=== PATIENT | male | born 1985 | race Two or more races ===

== ENCOUNTER 2020-05-31 05:42 | Emergency (ER) | payer OTHER, SELFPAY ==
[2020-05-31 06:14] VITALS: BP 109/66; PULSE 50; RESP 16; TEMP 35.6; O2SAT 100; BMI 21.2
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
== END 2020-05-31 07:36 | disposition home or self-care (01) ==
PROVIDERS: Emergency Provider Emergency Medicine
DX: S30.822A Blister (nonthermal) of penis, initial encounter (principal); T21.16XA Burn of first degree of male genital region, initial encounter; T31.0 Burns involving less than 10% of body surface; F12.90 Cannabis use, unspecified, uncomplicated; N48.89 Other specified disorders of penis; X10.0XXA Contact with hot drinks, initial encounter; Y93.9 Activity, unspecified; Y92.810 Car as the place of occurrence of the external cause; Z11.3 Encounter for screening for infections with a predominantly sexual mode of transmission
CPT/HCPCS: 99283

== ENCOUNTER 2022-10-18 05:58 | Emergency (ER) | payer OTHER, SELFPAY ==
--- NOTE | ~2022-10-18 | CT_ITS ---
EXAMINATION: CT PELVIS WITHOUT CONTRAST CLINICAL INFORMATION: Severe right hip pain and pelvic pain and fracture evaluation COMPARISON: None TECHNIQUE: Helical scanning was performed with submillimeter collimation through the pelvis. Sagittal and coronal multiplanar 2-D reconstructions were obtained. This CT examination was performed using dose optimization techniques as appropriate, variously including the following: *Automated exposure control *Adjustment of mA and/or kV according to patient size (this includes techniques or standardized protocols for targeted exams where dose is matched to indication/reason for exam; i.e. extremities or head) *Use of iterative reconstruction technique DLP: 242 mGy-cm FINDINGS: Study is abnormal. There is a fracture/dislocation of the right hip. The right femoral head is displaced, in the superior, lateral and posterior , with a vertical fracture through the lateral margin of the acetabulum which is displaced lateral by approximately 15 mm. A second chip fracture off the tip of the acetabulum is noted. The femoral head itself femoral neck and intertrochanteric region appears intact. The symphysis pubis, and bony pelvis is otherwise intact as is the left hip. There is some edema in the right gluteus minimus muscle and air is seen within the right hip joint space. CT/CT pelvis wo IV con IMPRESSION: Fracture/dislocation of the right hip as described.
[2022-10-18 06:12] VITALS: BP 140/89; BP 170/90; PULSE 100; RESP 22; TEMP 36.4; O2SAT 98; O2SAT 99; BMI 21.2
[2022-10-18] MEDS: 0.9 % Sodium Chloride 1,000 ML 999 ML IV (06:20)
[2022-10-18] MEDS: HYDROmorphone HCl 2 MG/ML VIAL IVPUSH ×3 (06:21→11:22)
[2022-10-18] MEDS: ondansetron HCL 4 MG/2 ML VIAL IVPUSH (06:21)
--- NOTE | 2022-10-18 06:23 | PC.NURSE ---
pt a&o, no sob or chest pain. pt complaining of 10/10 Right hip and leg pain. Pt had positive pulses and leg is warm to touch. medicated per Oct. Will monitor.
[2022-10-18 06:50] VITALS: BP 138/81; PULSE 53; RESP 16; TEMP 36.4; O2SAT 97
[2022-10-18 06:53] LABS: MANUAL DIFF FLAG NO
[2022-10-18 06:54] LABS: Basophils Absolute Auto 0.1 X10*3/uL (0.0-0.2); Basophils Percent Auto 0.6 % (0-2); Eosinophils Absolute Auto 0.2 X10*3/uL (0.0-0.4); Eosinophils Percent Auto 1.7 % (0-4); Hematocrit 43.4 % (42.0-52.0); Hemoglobin 14.7 g/dl (14.0-18.0); Imm Gran Abs Auto 0.08 X10*3/uL (0.00-0.03); Imm Gran Pct Auto 0.6 % (0.0-0.4); Lymphocytes Absolute Auto 1.4 X10*3/uL (1.2-4.9); Lymphocytes Percent Auto 10.4 % (20-40); Mean Corpuscular HGB Conc 33.9 g/dl (31.0-36.0); Mean Corpuscular Hemoglobin 31.7 pg (27.0-33.0); Mean Corpuscular Volume 93.7 fL (80.0-98.0); Mean Platelet Volume 10.6 fL (9.4-12.4); Monocytes Absolute Auto 0.7 X10*3/uL (0.1-1.2); Monocytes Percent Auto 5.7 % (2-11); Neutrophils Absolute Auto 10.6 x10*3/uL (2.0-8.3); Platelet Count 195 X10*3/uL (160-400); Red Blood Count 4.63 X10*6/uL (4.60-5.80); Red Cell Distribution Width 11.8 % (11.0-16.0); White Blood Count 13.1 X10*3/uL (4.8-10.8)
[2022-10-18 07:02] LABS: INTERNATIONAL NORM RATIO 1.1 (0.9-1.1); Prothrombin Time 12.7 SEC (10.0-13.1)
[2022-10-18 07:05] LABS: Partial Thromboplastin Time 29.3 SEC (26.0-36.4)
[2022-10-18 07:11] LABS: Alanine Aminotransferase 14 U/L (0-40); Alkaline Phosphatase 67 U/L (39-117); Anion Gap 10 (12-20); Aspartate Amino Transferase 20 U/L (5-37); Bilirubin Total 2.2 mg/dL (0.0-1.0); Blood Urea Nitrogen 16 mg/dL (9-16); Carbon Dioxide 26 mmol/L (22-29); Chloride 109 mmol/L (96-108); Creatinine Clr Calc Pharmacy 134.8; Estimated Glomerular Filt Rate > 60; Glucose Random 92 mg/dL (60-115); Potassium 3.9 mmol/L (3.3-5.1); Sodium 141 mmol/L (135-145); Total Protein 6.4 g/dL (6.5-8.0)
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
[2022-10-18 08:16] VITALS: RESP 16
[2022-10-18 08:25] VITALS: BP 141/74; PULSE 62; RESP 16; O2SAT 100
--- NOTE | 2022-10-18 10:39 | MHC.EDTECH ---
@1037 DR GILLIAM REQUESTS CALL OUT TO [facility] PT TX LINE FOR TRAUMA TX FOR THIS PT MICHELINE ANSWERS,TAKES PT INFO THEN ASKS TO SPEAK WITH DR TAWANA GILLIAM TAKES OVER CALL RIGHT AWAY
--- NOTE | 2022-10-18 10:47 | MHC.EDTECH ---
@10:46AM CALL RECEIVED FROM ANURAG OF THE [facility] PT TX LINE ASKING TO SPEAK WITH DR TAWANA GILLIAM TAKES OVER CALL RIGHT AWAY
[2022-10-18 11:26] LABS: COVID-19 Test Negative (Negative); IDNOW Serial# 16C4AD1C
--- NOTE | 2022-10-18 11:41 | PC.NURSE ---
Called x 3 times could not get through to give report. Will await a call from [facility].
== END 2022-10-18 11:40 | disposition short-term general hospital (02) ==
PROVIDERS: Internal Medicine; Emergency Provider Emergency Medicine; PCP Internal Medicine
DX: S72.061A Displaced articular fracture of head of right femur, initial encounter for closed fracture (principal); V47.5XXA Car driver injured in collision with fixed or stationary object in traffic accident, initial encounter; M25.551 Pain in right hip; D72.829 Elevated white blood cell count, unspecified; Y93.89 Activity, other specified; Y92.414 Local residential or business street as the place of occurrence of the external cause; Y99.9 Unspecified external cause status; Z20.822 Contact with and (suspected) exposure to COVID-19
CPT/HCPCS: 36415; 72192; 80053; 85025; 85610; 85730; 87635; 96361; 96374; 96375; 96376; 99285; J1170; J2405

== ENCOUNTER 2023-12-12 15:19 | Outpatient (AMB) | payer OTHER, SELFPAY ==
--- NOTE | 2023-12-12 15:30 | A.OFFPC_ITS ---
Vital Signs 12/12/23 15:33 Height 6 ft 3 in Weight 224 lb BMI 28.0 BP 110/74 Blood Pressure Location Lt brachial Position Sitting Pulse 77 Pulse Source Pulse Oximeter Pulse Oximetry (%) 97 Oxygen Delivery Method Room Air Intake Visit Reasons: Rt Hip Pain/Rt Pin & needles Rt leg Intake Note: Pt is here today for a sick visit. Pt c/o R hip pain. Pt also c/o L foot pain. Allergies No Known Allergies Allergy (Verified 12/12/23 16:27) Medication List - Last Reconciled 12/12/23 by LIANA Otto gabapentin 1,800 mg PO DAILY Tobacco use date assessed: 12/12/23 Dental Screening Dental Screen Date: 12/12/23 Did you have a dental visit in the last 12 months?: Yes Did you have a dental problem in the last 6 months where you did not have access to dental care?: No Was dental information given to patient?: Patient has dentist [facility] Medical History (Updated 12/12/23 @ 16:35 by LIANA Otto) No known health problems Surgical History Hx of shoulder surgery History of hip surgery Family History Father No problems noted. Mother Lung cancer Social History Housing: House Alcohol intake: never Patient Tobacco Use Status: Never used Tobacco e-Cigarette/Vaping Use: Never Used Substance Use Type: Marijuana service: Yes Current occupational status: employed Cognitive needs: No Hearing needs: No Vision needs: No Questionnaire PHQ-9 Over the last 2 weeks, how often have you been bothered by any of the following problems? 1. Little interest or pleasure in doing things: not at all 2. Feeling down, depressed, or hopeless: not at all 3. Trouble falling or staying asleep, or sleeping too much: not at all 4. Feeling tired or having little energy: nearly every day 5. Poor appetite or overeating: several days 6. Feeling bad about yourself - or that you are a failure or have let yourself or your family down: not at all 7. Trouble concentrating on things, such as reading the newspaper or watching television: not at all 8. Moving or speaking so slowly that other people could have noticed. Or the opposite - being so fidgety or restless that you have been moving around a lot more than usual: not at all 9. Thoughts that you would be better off or of hurting yourself in some way: not at all Total score: 4 Depression Screening Interpretation: Negative Depression Screening Done: Yes 95561 - PHQ-9 Billing: Yes Source: Developed by Drs. Kwame Mccatrhy, Meagan Ackerman, Tyson Diaz and colleagues, with an educational ana from [employer] (formerly [employer]). Thrive Questionnaire Date Thrive assessed: 12/12/23 I am a: Patient What is your living situation today?: I have a steady place to live Within the past 12 months, did the food you bought not last and you didn't have the money to get more?: Never true Within the past 12 months, did you worry whether your food would run out before you got money to buy more?: Never true Do you have trouble paying for medicines?: No Do you have trouble getting transportation to medical appointments?: No Do you have trouble paying your heating and electricity bill?: No Do you have trouble taking care of your child, family member or friend?: No Do you have trouble with day-to-day activities such as bathing, preparing meals, shopping, managing finances, etc.?: No Are you currently unemployed and looking for a job?: No Are you interested in more education?: Yes THRIVE Score: 0 AUDIT C Alcohol Use Questionnaire (AUDIT-C) 1. How often do you have a drink containing alcohol?: Monthly or less 2. How many drinks containing alcohol do you have on a typical day when you are drinking?: 1 or 2 3. How often do you have six or more drinks on one occasion?: Never Total Score: 1 JADYN-7 AMB Questionnaire JADYN-7 Date JADYN - 7 assessed: 12/12/23 Feeling nervous, anxious, or on edge: 0 = Not at all Not being able to stop or control worryin = Not at all Worrying too much about different things: 1 = Several days Trouble relaxin = Several days Being so restless that it is hard to sit still: 0 = Not at all Becoming easily annoyed or irritable: 1 = Several days Feeling afraid as if something awful might happen: 1 = Several days Total JADYN-7 score (0-4 normal; 5-9 mild; 10-14 moderate; 15-21 severe): 4 Source: Developed by Drs. Kwame Mccarthy, Meagan Ackerman, Tyson Diaz and colleagues, with an educational ana from [employer] (formerly [employer]). JADYN-7 Assessment Billing JADYN-7 Assessment Tool: JADYN-7 Assessment 27861 Review of Systems Const Details: Constitutional : No Weight loss, No Fever, No Chills, No Fatigue, No Malaise ENT/Mouth : No sore throat, No Rhinorrhea Eyes: No Eye Pain, No Swelling, No Redness Cardiovascular : No Chest Pain, No SOB, No Dyspnea on Exertion, No Orthopnea, No Edema, No Palpitations Respiratory : No Cough, No Sputum, No Wheezing Gastrointestinal : No Nausea, No Vomiting, No Diarrhea, No Constipation, No abdominal Pain, No Hematochezia, No Melena Genitourinary : No Dysuria, No Urinary Frequency, No Hematuria, Musculoskeletal : Admits lower back pain, Admits left hip pain, Admits Bilateral pain on bottom of foot. Skin : No Skin Lesions, No rash Neuro : No burning pain. Psych : No Anxiety/Panic, No Depression Heme/Lymph: No Bruising, No Bleeding,No Lymphadenopathy Endocrine : No Polyuria, No Polydipsia, Admits diminished sex drive All other systems reviewed and are negative Physical exam (Primary Care) Vital Signs: Last Vital Signs Pulse 77 12/12/23 15:33 BP 110/74 12/12/23 15:33 Pulse Ox 97 12/12/23 15:33 Oxygen Delivery Method Room Air 12/12/23 15:33 Care Plan Goal for BP management: Vital signs reviewed stable. BMI result Body Mass Index 28.0 Tobacco/Smoking Status: Tobacco use Status Tobacco use date assessed 12/12/23 12/12/23 15:47 Patient Tobacco Use Status Never used Tobacco 12/12/23 15:47 e-Cigarette/Vaping Use Never Used 12/12/23 15:47 PHQ-9: PHQ-9 Score PHQ-9: Total score 4 12/12/23 15:47 Depression Screening Interpretation: Negative Thrive Assessment: Date of Thrive Assessment Date Thrive assessed 12/12/23 12/12/23 15:47 Const Other: Appearance: Alert.? Oriented X3.? No acute distress.? Head: Normocephalic, atraumatic. Neck: Normal inspection.? Neck supple.? CVS: Normal heart rate and rhythm.? Pulses normal.? Respiratory: No respiratory distress.? Breath sounds normal.? Skin: Skin warm and dry.? Normal skin color.? Normal skin turgor.? Extremities: + tenderness to bottom of foot, near calcaneus, bilateral. Back: + tenderness to left SI. Neuro: Oriented X 3.? No motor deficit.? No sensory deficit. CN 2-12 intact Assessment and Plan Assessment & Plan (1) Disorder of SI (sacroiliac) joint: Comment: Will obtain x-ray of SI joint. Will prescribe meloxicam. Code(s): M53.3 - Sacrococcygeal disorders, not elsewhere classified (2) Lower back pain: Comment: Will obtain lumbar x-ray. Code(s): M54.50 - Low back pain, unspecified Qualifiers: Chronicity: unspecified Back pain laterality: unspecified Sciatica presence: unspecified whether sciatica present Qualified Code(s): M54.50 - Low back pain, unspecified (3) Plantar fasciitis, bilateral: Comment: Will refer patient to Podiatry. Code(s): M72.2 - Plantar fascial fibromatosis Plan: Take your medications as prescribed. If you were prescribed antibiotics today, it is important that you take your medication to their entirety, do not skip any doses, do not finish them early. Follow-up with your primary care provider this week. Return to the emergency department with new or worsening symptoms. Such as fevers, chills, chest pain, shortness of breath, nausea, vomiting, dizziness, headache, vision changes, lethargy In case of emergency call 911 (4) Erectile disorder: Comment: Will draw PSA and testosterone levels. Code(s): N52.9 - Male erectile dysfunction, unspecified Plan follow up in 2 months for PE. Orders: Orders XR sacroiliac joint 1-2V Today M53.3 - Sacrococcygeal disorders, not elsewhere classified XR lumbar spine 2-3V Today M54.50 - Low back pain, unspecified TSH reflex Free T4 Today Z13.29 - Encounter for screening for other suspected endocrine disorder Testosterone, Free/Total Today N52.9 - Male erectile dysfunction, unspecified Comprehensive Met. Panel Today Z91.89 - Other specified personal risk factors, not elsewhere classified Complete Blood Count Auto Diff Today Z13.0 - Encounter for screening for diseases of the blood and blood-forming organs and certain disorders involving the immune mechanism Vitamin D 25-OH (D2 and D3) Today Z13.21 - Encounter for screening for nutritional disorder Vitamin B6 Today Z13.21 - Encounter for screening for nutritional disorder Vitamin B12 Today Z13.21 - Encounter for screening for nutritional disorder UA CC w/rflx Micro + Cult Today Z13.89 - Encounter for screening for other disorder Lipid Panel Today Z13.220 - Encounter for screening for lipoid disorders PSA,Total (Free>4and<10) Today N52.9 - Male erectile dysfunction, unspecified, Z12.5 - Encounter for screening for malignant neoplasm of prostate Medications: New meloxicam 15 mg PO DAILY 14 tabs 0RF Discontinued bacitracin Discontinued Reason: Patient Completed Course 1 appl topical BID 10 days 28 grams 0RF hydrocodone-acetaminophen 5-325 mg Discontinued Reason: Patient Completed Course 1 tab PO Q6H PRN 14 tabs 0RF pain Coding Level of Care Code Est Pt Level 4 (14470) Diagnoses Disorder of SI (sacroiliac) joint M53.3 Low back pain, unspecified back pain laterality, unspecified chronicity, unspecified whether sciatica present M54.50 Chronicity: unspecified Back pain laterality: unspecified Sciatica presence: unspecified whether sciatica present Plantar fasciitis, bilateral M72.2 Erectile disorder N52.9 Additional Codes JADYN-7 Assessment Billing - JADYN-7 Assessment Tool: JADYN-7 Assessment 35262 ([id number]) Time Spent (min) 32
[2023-12-12 15:33] VITALS: BP 110/74; PULSE 77; O2SAT 97; BMI 28.0
== END 2023-12-12 16:58 | disposition home or self-care (01) ==
PROVIDERS: PCP Internal Medicine; Visit Provider Nurse Practitioner Primary Care
DX: M53.3 Sacrococcygeal disorders, not elsewhere classified (principal); M54.50 Low back pain, unspecified; M72.2 Plantar fascial fibromatosis; N52.9 Male erectile dysfunction, unspecified
CPT/HCPCS: 99214

== ENCOUNTER 2023-12-20 09:49 | Outpatient (REF) | payer OTHER, SELFPAY ==
--- NOTE | ~2023-12-20 | XR_ITS ---
EXAMINATION: Lumbar sacral spine series sacral iliac joint series CLINICAL INFORMATION: Low back pain sacrococcygeal disorders COMPARISON: CT scan of the pelvis September 2022 TECHNIQUE: 3 views of lumbar sacral spine. 3 views of the sacroiliac joints FINDINGS: Lumbar sacral spine: Vertebral bodies normally aligned with normal height. Disc spaces normal facets normal. Surrounding bone and soft tissues unremarkable. Sacroiliac joints: The sacroiliac joints are normal without degenerative change or widening. Incidental note made of postsurgical changes overlying the right acetabulum and hip. Patient is status post orthopedic fixation related to prior posterior fracture dislocation of the right hip/acetabulum XR/XR lumbar spine 2-3V IMPRESSION: 1. No acute abnormality of the lumbar sacral spine or sacroiliac joints. 2. Postsurgical changes of the right hip and right acetabulum.
--- NOTE | ~2023-12-20 | XR_ITS ---
EXAMINATION: Lumbar sacral spine series sacral iliac joint series CLINICAL INFORMATION: Low back pain sacrococcygeal disorders COMPARISON: CT scan of the pelvis September 2022 TECHNIQUE: 3 views of lumbar sacral spine. 3 views of the sacroiliac joints FINDINGS: Lumbar sacral spine: Vertebral bodies normally aligned with normal height. Disc spaces normal facets normal. Surrounding bone and soft tissues unremarkable. Sacroiliac joints: The sacroiliac joints are normal without degenerative change or widening. Incidental note made of postsurgical changes overlying the right acetabulum and hip. Patient is status post orthopedic fixation related to prior posterior fracture dislocation of the right hip/acetabulum XR/XR sacroiliac joint 1-2V IMPRESSION: 1. No acute abnormality of the lumbar sacral spine or sacroiliac joints. 2. Postsurgical changes of the right hip and right acetabulum.
[2023-12-20 13:20] LABS: MANUAL DIFF FLAG NO
[2023-12-20 13:33] LABS: Appearance Urine Clear; Color Urine Yellow; Glucose Urine UA Negative (Negative); Leukocyte Esterase Urine Negative (Negative); Nitrite Urine Negative (Negative); Urine Blood Negative (Negative); Urine Ketones Negative (Negative); Urine Protein Negative (Neg-Trace)
[2023-12-20 13:40] LABS: Basophils Percent Auto 0.6 % (0-2); Eosinophils Absolute Auto 0.3 X10*3/uL (0.0-0.4); Eosinophils Percent Auto 4.1 % (0-4); Hematocrit 44.8 % (42.0-52.0); Hemoglobin 15.2 g/dl (14.0-18.0); Imm Gran Abs Auto 0.01 X10*3/uL (0.00-0.03); Imm Gran Pct Auto 0.2 % (0.0-0.4); Lymphocytes Absolute Auto 1.8 X10*3/uL (1.2-4.9); Lymphocytes Percent Auto 28.4 % (20-40); Mean Corpuscular HGB Conc 33.9 g/dl (31.0-36.0); Mean Corpuscular Hemoglobin 31.3 pg (27.0-33.0); Mean Corpuscular Volume 92.2 fL (80.0-98.0); Mean Platelet Volume 11.6 fL (9.4-12.4); Monocytes Absolute Auto 0.7 X10*3/uL (0.1-1.2); Monocytes Percent Auto 10.3 % (2-11); Neutrophils Absolute Auto 3.6 x10*3/uL (2.0-8.3); Neutrophils Percent Auto 56.4 % (45-73); Platelet Count 225 X10*3/uL (160-400); Red Blood Count 4.86 X10*6/uL (4.60-5.80); Red Cell Distribution Width 11.9 % (11.0-16.0); White Blood Count 6.3 X10*3/uL (4.8-10.8)
[2023-12-20 14:19] LABS: PSA,Total (Free>4and<10) 0.75 ng/mL (0.00-4.00)
[2023-12-20 14:28] LABS: Alanine Aminotransferase 14 U/L (0-40); Albumin Level 4.3 g/dL (3.5-5.0); Alkaline Phosphatase 80 U/L (39-117); Anion Gap 10 (12-20); Aspartate Amino Transferase 19 U/L (5-37); Bilirubin Total 1.2 mg/dL (0.0-1.0); Blood Urea Nitrogen 15 mg/dL (9-16); Calcium 9.5 mg/dL (8.4-10.2); Carbon Dioxide 24 mmol/L (22-29); Chloride 107 mmol/L (96-108); Cholesterol 175 mg/dL (<200); Estimated Glomerular Filt Rate > 60; Glucose Random 119 mg/dL (60-115); HDL Cholesterol 53 mg/dL (>40); LDL Cholesterol Calculated 106 mg/dL (<100); Potassium 3.8 mmol/L (3.3-5.1); Sodium 137 mmol/L (135-145); TSH reflex Free T4 1.34 uIU/mL (0.32-4.0); Total Protein 7.6 g/dL (6.5-8.0); Triglycerides 80 mg/dL (<150)
[2023-12-20 14:29] LABS: Vitamin B12 751 pg/mL (200-900)
[2023-12-25 21:14] LABS: Testosterone, Free 80.7 pg/mL (35.0-155.0); Testosterone, Total 511 ng/dL (250-1100)
[2023-12-26 06:33] LABS: Vitamin B6 23.6 ng/mL (2.1-21.7)
[2024-01-04 14:53] LABS: Vitamin D 25-OH, D2 <4 ng/mL; Vitamin D 25-OH, D3 30 ng/mL; Vitamin D 25-OH, Total 30 ng/mL (30-100)
== END 2023-12-20 09:50 | disposition home or self-care (01) ==
LOC: HO.HMGCX 09:49
PROVIDERS: Visit Provider Nurse Practitioner Primary Care
DX: Z13.29 Encounter for screening for other suspected endocrine disorder (principal); Z13.21 Encounter for screening for nutritional disorder; Z13.220 Encounter for screening for lipoid disorders; Z13.89 Encounter for screening for other disorder; Z12.5 Encounter for screening for malignant neoplasm of prostate; Z13.0 Encounter for screening for diseases of the blood and blood-forming organs and certain disorders involving the immune mechanism; M54.50 Low back pain, unspecified; M53.3 Sacrococcygeal disorders, not elsewhere classified; N52.9 Male erectile dysfunction, unspecified; Z91.89 Other specified personal risk factors, not elsewhere classified
CPT/HCPCS: 36415; 72100; 72200; 80053; 80061; 81003; 82306; 82607; 84153; 84207; 84402; 84403; 84443; 85025

== ENCOUNTER 2024-01-14 13:48 | Outpatient (AMB) | payer OTHER, SELFPAY ==
--- NOTE | 2024-01-14 13:50 | MHC.OFFWIV ---
Intake Vital Signs 01/14/24 13:51 Height 6 ft 3 in BP 112/72 Blood Pressure Location Rt brachial Position Sitting Pulse 76 Pulse Source Pulse Oximeter Temp 97.9 F Temp Source Oral Pulse Oximetry (%) 98 Oxygen Delivery Method Room Air Intake Visit Reasons: EP STD and HIV testing Patient Tobacco Use Status: Never used Tobacco Allergies No Known Allergies Allergy (Verified 03/02/24 15:24) Do you need a note to return to daycare/school/sports/work: No HPI HPI Comments History of Present Illness Details Patient presents today requesting STD screening test. Patient is asymptomatic [facility] Medical History (Updated 03/02/24 @ 15:32 by LIANA Otto) No known health problems Surgical History Hx of shoulder surgery History of hip surgery Family History Father No problems noted. Mother Lung cancer Social History Housing: House Alcohol intake: never Patient Tobacco Use Status: Never used Tobacco e-Cigarette/Vaping Use: Never Used Substance Use Type: Marijuana service: Yes Current occupational status: employed Cognitive needs: No Hearing needs: No Vision needs: No Review of Systems Const All systems reviewed & are unremarkable except as noted in HPI and below Physical Exam Vital Signs: Last Vital Signs Temp 97.9 F 01/14/24 13:51 Pulse 76 01/14/24 13:51 BP 112/72 01/14/24 13:51 Pulse Ox 98 01/14/24 13:51 Oxygen Delivery Method Room Air 01/14/24 13:51 Const General: healthy appearing Assessment & Plan Assessment & Plan (1) Screening for STD (sexually transmitted disease): Code(s): Z11.3 - Encounter for screening for infections with a predominantly sexual mode of transmission Plan STD screening tests ordered. Orders: Orders Hepatitis A,B,C Profile 01/14/24 Z11.3 - Encounter for screening for infections with a predominantly sexual mode of transmission Syphilis Screen 01/14/24 Z11.3 - Encounter for screening for infections with a predominantly sexual mode of transmission CT NG by PCR 01/14/24 Z13.9 - Encounter for screening, unspecified HIV Ab/Ag 01/14/24 Z11.3 - Encounter for screening for infections with a predominantly sexual mode of transmission Coding Level of Care Code Est Pt Level 3 (67377) Diagnoses Screening for STD (sexually transmitted disease) Z11.3
[2024-01-14 13:51] VITALS: BP 112/72; PULSE 76; TEMP 36.6; O2SAT 98
== END 2024-01-14 14:37 | disposition home or self-care (01) ==
PROVIDERS: PCP Nurse Practitioner Primary Care; Visit Provider Physician Assistant Medical
DX: Z11.3 Encounter for screening for infections with a predominantly sexual mode of transmission (principal)
CPT/HCPCS: 99213

== ENCOUNTER 2024-01-14 14:21 | Outpatient (REF) | payer OTHER, SELFPAY | END 2024-01-14 14:22 | disposition home or self-care (01) | LOC: HO.LNP 14:21 | PROVIDERS: Visit Provider Physician Assistant Medical | DX: Z13.89 Encounter for screening for other disorder (principal) ==

== ENCOUNTER 2024-01-14 14:27 | Outpatient (REF) | payer OTHER, SELFPAY ==
[2024-01-15 08:24] LABS: Syphilis Screen Nonreactive (Nonreactive)
[2024-01-15 08:31] LABS: HBS Num1 259.51 mIU/mL (0-7.99); HBc Num1 0.07 S/CO (0.00-0.79); HBsAGNum1 0.37 S/CO (0.00-0.99); HIV AB/AG Nonreactive (Nonreactive); HIV Num 1 0.05 S/CO (0.00-0.99); Hepatitis A Antibody IgM 0.22 Index (0-0.79); Hepatitis B Core Antibody Nonreactive (Nonreactive); Hepatitis B Surface Antigen Negative (Negative); ~HepC Num1 0.07 S/CO (0.00-0.79); ~Hepatitis A Antibody IgM Nonreactive (Nonreactive); ~Hepatitis B Surface Antibody REACTIVE (Nonreactive); ~Hepatitis C Antibody Nonreactive (Nonreactive)
[2024-01-15 11:06] LABS: CT PCR NOT DETECTED (Not Detect.); NG PCR NOT DETECTED (Not Detect.)
== END 2024-01-14 14:28 | disposition home or self-care (01) ==
LOC: HO.HMGCLDS 14:27
PROVIDERS: PCP Nurse Practitioner Primary Care; Visit Provider Physician Assistant Medical
DX: Z13.9 Encounter for screening, unspecified (principal); Z11.3 Encounter for screening for infections with a predominantly sexual mode of transmission
CPT/HCPCS: 0353U; 36415; 86704; 86706; 86709; 86780; 86803; 87340; 87389

== ENCOUNTER 2024-03-02 14:47 | Outpatient (AMB) | payer OTHER, SELFPAY ==
--- NOTE | 2024-03-02 14:48 | MHC.PC.OV ---
Vital Signs 03/02/24 14:49 Height 6 ft 3 in Weight 219 lb BMI 27.4 BP 104/70 Blood Pressure Location Lt brachial Position Sitting Pulse 73 Pulse Source Pulse Oximeter Pulse Oximetry (%) 98 Oxygen Delivery Method Room Air Intake Visit Reasons: Annual PE Intake Note: Pt is here for annual PE Allergies No Known Allergies Allergy (Verified 03/02/24 15:24) Medication List - Last Reconciled 03/02/24 by LIANA Otto gabapentin 600 mg PO TID Tobacco use date assessed: 03/02/24 Dental Screening Dental Screen Date: 03/02/24 Did you have a dental visit in the last 12 months?: Yes Did you have a dental problem in the last 6 months where you did not have access to dental care?: No Was dental information given to patient?: Patient has dentist HPI HPI Comments History of Present Illness Details patient is a 38-year-old male here today for physical exam. Patient does not know when his last TD booster shot was, however he believes it was in the past 10 years and would like us to obtain records from previous provider. He has signed release at today's appointment. He has a past medical history significant for: Right hip pain secondary to right hip dislocation - patient has establish care with ortho. Left foot plantar fasciitis- little improvement with meloxicam and stretches. Patient will get referral to [facility]. [facility] Medical History (Updated 03/02/24 @ 15:32 by LIANA Otto) No known health problems Surgical History Hx of shoulder surgery History of hip surgery Family History Father No problems noted. Mother Lung cancer Social History Housing: House Alcohol intake: never Patient Tobacco Use Status: Never used Tobacco e-Cigarette/Vaping Use: Never Used Substance Use Type: Marijuana service: Yes Current occupational status: employed Cognitive needs: No Hearing needs: No Vision needs: No Questionnaire Thrive Questionnaire Date Thrive assessed: 12/12/23 AUDIT C Alcohol Use Questionnaire (AUDIT-C) 1. How often do you have a drink containing alcohol?: Monthly or less 2. How many drinks containing alcohol do you have on a typical day when you are drinking?: 1 or 2 3. How often do you have six or more drinks on one occasion?: Never Total Score: 1 JADYN-7 AMB Questionnaire JADYN-7 Date JADYN - 7 assessed: 12/12/23 Source: Developed by Drs. Kwame Mccarthy, Meagan Ackerman, Tyson Diaz and colleagues, with an educational ana from [employer]. Review of Systems Const All systems reviewed & are unremarkable except as noted in HPI and below Physical exam (Primary Care) Vital Signs: Last Vital Signs Pulse 73 03/02/24 14:49 BP 104/70 03/02/24 14:49 Pulse Ox 98 03/02/24 14:49 Oxygen Delivery Method Room Air 03/02/24 14:49 Care Plan Goal for BP management: Blood pressure is controlled. BMI result Body Mass Index 27.4 Tobacco/Smoking Status: Tobacco use Status Tobacco use date assessed 03/02/24 03/02/24 14:53 Patient Tobacco Use Status Never used Tobacco 03/02/24 14:53 e-Cigarette/Vaping Use Never Used 03/02/24 14:53 Thrive Assessment: Date of Thrive Assessment Date Thrive assessed 12/12/23 03/02/24 14:53 Const Other: Appearance: Alert.? Oriented X3.? No acute distress.? Head: Normocephalic,. Eyes: Pupils equal, round and reactive to light.? ENT: Pharynx normal.?TM intact and pearly porter. Neck: Normal inspection.? Neck supple.? CVS: Normal heart rate and rhythm.? Pulses normal.? Respiratory: No respiratory distress.? Breath sounds normal.? Abdomen: Soft and nontender.? Skin: Skin warm and dry.? Normal skin color.? Normal skin turgor.? Extremities: No lower extremity edema.? No calf ttp. 5/5 strength to bilateral upper and lower extremities. +tenderness to left calcaneus and left achilles tendon. Back: No midline tenderness, no C-spine tenderness, full range of motion, no CVA tenderness bilaterally Neuro: Oriented X 3.? No motor deficit.? No sensory deficit. CN 2-12 intact Assessment and Plan Assessment & Plan (1) Physical exam: Comment: Patient does not know when his last TD booster shot was, however he believes it was in the past 10 years and would like us to obtain records from previous provider. He has signed release at today's appointment. He has a past medical history significant for: Right hip pain secondary to right hip dislocation - patient has establish care with ortho. Left foot plantar fasciitis- little improvement with meloxicam and stretches. Patient will get referral to [facility] Has been educated on the importance of self testicular exams. Will draw labs. Code(s): Z00.00 - Encounter for general adult medical examination without abnormal findings (2) Plantar fasciitis, bilateral: Comment: Will refer patient to Podiatry. Code(s): M72.2 - Plantar fascial fibromatosis Orders: Referrals Podiatry Referral M79.672 - Pain in left foot Coding Level of Care Code Est Pt Prev Care 18-39y(03711) Diagnoses Physical exam Z00.00 Plantar fasciitis, bilateral M72.2 Time Spent (min) 26
[2024-03-02 14:49] VITALS: BP 104/70; PULSE 73; O2SAT 98; BMI 27.4
== END 2024-03-02 15:46 | disposition home or self-care (01) ==
PROVIDERS: PCP Nurse Practitioner Primary Care; Visit Provider Nurse Practitioner Primary Care
DX: Z00.00 Encounter for general adult medical examination without abnormal findings (principal); M72.2 Plantar fascial fibromatosis
CPT/HCPCS: 99395

== ENCOUNTER 2024-06-19 20:41 | Emergency (ER) | payer OTHER, SELFPAY ==
[2024-06-19 20:47] VITALS: BP 115/72; PULSE 79; RESP 18; TEMP 37.1; O2SAT 97; BMI 26.2
--- OUTSIDE RECORDS SUMMARY | 2024-06-19 23:32 | XMS_ITS | Continuity of Care Document ---
Author Organization [facility] Address [address] [place] [address]- Care Team Providers Care Employee Operations Examiner Name Role Phone Rut Christianson MD Primary Care Physician [phone] Encounter [facility] Date(s): 08/03/19 - 08/13/19 [facility] [address] [place] [address]- [facility] Attending Physician: Tatiana Lara Admitting Physician: AdmTatiana felder Referring Physician: AdmtrTatiana Allergies, Adverse Reactions, Alerts Substance Reaction Severity Status Zoloft hives Active Immunizations Given and Recorded Vaccine Date Status Refusal Reason tetanus/diphtheria/pertussis, acel(Tdap) 1 12/30/09 Given pneumococcal 23-valent vaccine 2 12/30/09 Given influenza virus vaccine, inactivated 3 12/30/09 Gi lalit 1Admin Note: vis 12/30 2Admin Note: vis 12/02 3Admin Note: vis 04/03 Medications acyclovir 400 mg oral tablet 1 tablet = 400 mg, By Mouth, 3 times a day, drink plenty of fluids. use at FIRST sign of outbreak, # 15 tablet, 3 Refills, Maintenance, 08/03/19 15:26:43 EST, Tablet, 190.5, cm, 08/03/19 15:02:53 EST, Height Start Date: 08/03/19 Stop Date: 08/23/19 Status: Ordered Problem List Condition Effective Dates Status Health Status Inform ant ADHD - Attention deficit dis order with hyperactivity(Confirmed) 1989 Active Shoulder dislocation(Confirmed) 01/2014 Active Social History Social History Type Response Smoking Status Former smoker entered on: 08/16/14 Sex Male
--- OUTSIDE RECORDS SUMMARY | 2024-06-19 23:32 | XMS_ITS | Continuity of Care Document ---
Author Organization [facility] Address [address] [place] [address]- Care Team Providers Care Patient Svcs Mgr Name Role Phone Rut Christianson MD Primary Care Physician Encounter [facility] Date(s): 09/13/20 - 10/13/20 [facility] [address], [place] [address] Attending Physician: Tatiana Lara Admitting Physician: Tatiana Lara Referring Physician: AdmtrTatiana Allergies, Adverse Reactions, Alerts [...] outbreak, # 15 tablet, 3 Refills, Maintenance, 06/06/20 11:48:00 EDT, Tablet, [id number], 190.5, cm, 06/06/20 11:41:00 EDT, Height Start Date: 06/06/20 Stop Date: 06/26/20 Status: Ordered Problem List Condition Effective Dates Status Health Status Inform ant ADHD - Attention deficit dis order with hyperactivity(Confirmed) 1989 Active Social History Social History Type Response Smoking Status Former smoker entered on: 08/16/14 Sex Male
--- OUTSIDE RECORDS SUMMARY | 2024-06-19 23:32 | XMS_ITS | Continuity of Care Document ---
Author Organization [facility] ter Address [address] [place] [address]- Care Team Providers Care Dispatcher Maintenance Service Name Role Phone Rut Christianson MD Primary Care Physician Encounter [facility] Date(s): 10/22/22 - 11/21/[address] [address] Attending Physician: Not on Staff, Attending MD Admitting Physician: Not on Staff, Admitting MD Referring Physician: Not on Staff, Referring MD Allergies, Adverse Reactions, Alerts No Known Allergies Immunizations Given and Recorded Vaccine Date Status Refusal Reason tetanus/diphtheria/pertussis, acel(Tdap) 1 12/30/09 Given pneumococcal 23-valent vaccine 2 12/30/09 Given influenza virus vaccine, inactivated 3 12/30/09 Gi lalit 1Admin Note: vis 12/30 2Admin Note: vis 12/02 3Admin Note: vis 04/03 Medications Acetaminophen 0 Refills, Maintenance, 11/16/22 10:02:00 EDT, Partial fill upon patient request if the prescription is for a schedule II opioid drug. Start Date: 11/16/22 Status: Ordered acyclovir 400 mg oral tablet See Instructions, TAKE 1 TABLET 3 TIMES A DAY X5 DAYS DRINK PLENTY OF FLUIDS. USE AT FIRST SIGN OF OUTBREAKA, # 15 tablet, 3 Refills, Maintenance, 09/07/22 12:58:00 EST, [id number] Start Date: 09/07/22 Status: Ordered docusate-senna 50 mg-8.6 mg oral capsule 2 capsule, By Mouth, 2 times a day, PRN Constipation, # 30 capsule, 0 Refills, Acute 10/21/23 11:07:00 EST, 10/22/22 11:06:00 EST, Capsule, [facility], Partial fill upon patient requestif the prescription is for a schedule II opioid igor... Start Date: 10/22/22 Stop Date: 10/21/23 Status: Ordered gabapentin 300 mg oral capsule via surgery team, Refills 0, Maintenance, 11/16/22 10:02:00 EDT, Partial fill upon patient request if the prescription is for a schedule II opioid drug. Start Date: 11/16/22 Status: Ordered indomethacin 75 mg oral capsule, extended release 1 capsule = 75 mg, By Mouth, Daily, with food or milk, # 56 capsule, 0 Refills, Maintenance, 10/26/22 12:26:00 EST, ER Capsule, [facility], Partial fill upon patient request if the prescription is for a schedule II opioid drug., 190, cm,... Start Date: 10/26/22 Stop Date: 12/21/22 Status: Ordered oxyCODONE 5 mg oral tablet via surgery team, Refills 0, Tot. Refills 0, Maintenance, 11/16/22 10:02:00 EDT, Partial fill upon patient request if the prescription is for a schedule II opioid drug. Start Date: 11/16/22 Status: Ordered Protonix 40 mg oral delayed release tablet = 40 mg, By Mouth, Daily, # 30 each, 0 Refills, Maintenance, 10/22/22 11:06:00 EST, EC Tablet, 190,cm, 10/22/22 7:09:00 EST, Height, 82.5, kg, 10/18/22 20:47:00 EST, Dry Weight Start Date: 10/22/22 Stop Date: 11/21/22 Status: Ordered Problem List Condition Confirmation Course Effective Dates Status H ealth Status Informant ADHD - Attention deficit disorder with hyperactivity Confirmed 1989 Active Social History Social History Type Response Smoking Status Former smoker entered on: 08/16/14 Sex Male Patient Care team information Care Team Personnel Name: Rut Christianson MD Position: [facility] Primary Care Physician Member Role: PCP Address: Address: [address] [place] [address]- Name: Laura Bentley RN Position: S RN Member Role: Primary Care Nurse Name: Terra Mann RN Position: S RN Member Role: Primary Care Nurse Care Team Related Persons Name: GRADY YANG Address: home [address] [place] [address]
--- OUTSIDE RECORDS SUMMARY | 2024-06-19 23:32 | XMS_ITS | Continuity of Care Document ---
Author Organization [facility] ter Address [address] [place] [address]- Care Team Providers Care Cinder Snapper Name Role Phone Rut Christianson MD Primary Care Physician [phone] Encounter [facility] Date(s): 10/13/19 - 10/13/[address] [address]- [facility] Attending Physician: Rut Christianson MD Allergies, Adverse Reactions, Alerts Substance Reaction Severity [...] Date: 08/03/19 Stop Date: 08/23/19 Status: Ordered fluticasone 50 mcg/inh nasal spray 1 sprays, Nares, Both, Daily, # 16 Gm, 2 Refills, Maintenance, 10/12/19 16:00:00 EST, [place], [id number], 1 sprays Nares, Both Daily, 190.5, cm, 10/12/19 15:28:00 EST, Height Start Date: 10/12/19 Status: Ordered Problem List Condition Effective Dates Status Health Status Inform ant ADHD - Attention deficit dis order with hyperactivity(Confirmed) 1989 Active Social History Social History Type Response Smoking Status Former smoker entered on: 08/16/14 Sex Male
--- OUTSIDE RECORDS SUMMARY | 2024-06-19 23:32 | XMS_ITS | Continuity of Care Document ---
Author Organization [facility] Address [address] [place] [address]- Care Team Providers Care Principal Mechanical Engineer Name Role Phone Rut Christianson MD Primary Care Physician Encounter [facility] Date(s): 10/19/19 - 10/29/19 [facility] [address] [place] [address]- [facility] Attending Physician: Tatiana Lara Admitting Physician: AdmtrTatiana Referring Physician: Admtr, ArArleth Allergies, Adverse Reactions, Alerts Substance Reaction Severity [...] Gm, 2 Refills, Maintenance, 10/12/19 16:00:00 EST, [place], [id number], 1 sprays Nares, Both Daily, 190.5, cm, 10/12/19 15:28:00 EST, Height Start Date: 10/12/19 Status: Ordered Problem List Condition Effective Dates Status Health Status Inform ant ADHD - Attention deficit dis order with hyperactivity(Confirmed) 1989 Active Social History Social History Type Response Smoking Status Former smoker entered on: 08/16/14 Sex Male
--- OUTSIDE RECORDS SUMMARY | 2024-06-19 23:32 | XMS_ITS | Continuity of Care Document ---
Author Organization [facility] Address [address] [place] [address]- Care Team Providers Care Credentialing Assistant Name Role Phone Rut Christianson MD Primary Care Physician [phone] Encounter [facility] Date(s): 11/20/23 - 12/20/[address] [address]- Attending Physician: Tatiana Lara Admitting Physician: AdmtrTatiana Referring Physician: AdmtrTatiana Allergies, Adverse Reactions, Alerts No Known Allergies [...] OUTBREAKA, # 15 tablet, 3 Refills, Maintenance, 10/15/23 18:17:00 EST, [id number], 190, cm, 11/16/22 9:37:00 EDT, Height, 82.5, kg, 10/18/22 20:... Start Date: 10/15/23 Status: Ordered gabapentin 300 mg oral capsule [...] Refills, Maintenance, 10/26/22 12:26:00 EST, ER Capsule, [facility], Partial fill upon patient request if [...] Team Personnel Name: Rut Christianson MD Position: [facility] Physician - Primary Care Member Role: PCP Address: Address: [address] [place] [address]- Name: Laura Bentley RN Position: S RN Member Role: Primary Care Nurse Name: Terra Mann RN Position: S RN Member Role: Primary Care Nurse Care Team Related Persons Name: GRADY YANG Address: home [address] [place] [address]
--- OUTSIDE RECORDS SUMMARY | 2024-06-19 23:32 | XMS_ITS | Continuity of Care Document ---
Author Organization [facility] Address [address] [place] [address]- Care Team Providers Care Photographers' Model Name Role Phone Rut Christianson MD Primary Care Physician [place] [facility] [place] 12/27/22 - 01/26/23 [facility] [address] [place] [address]- Allergies, Adverse Reactions, Alerts No Known Allergies [...] OUTBREAKA, # 15 tablet, 3 Refills, Maintenance, 12/28/22 13:30:00 EDT, [id number], 190, cm, 11/16/22 9:37:00 EDT, Height, 82.5, kg, 10/18/22 20:... Start Date: 12/28/22 Status: Ordered docusate-senna 50 mg-8.6 mg oral capsule 2 capsule, By Mouth, 2 times a day, PRN Constipation, # 30 capsule, 0 Refills, Acute 10/21/23 11:07:00 EST, 10/22/22 11:06:00 EST, Capsule, [facility], Partial fill upon patient requestif the [...] Refills, Maintenance, 10/26/22 12:26:00 EST, ER Capsule, [facility], Partial fill upon patient request [...] Team Personnel Name: Rut Christianson MD Position: [facility] Physician - Primary Care Member Role: PCP Address: Address: [address] [place] [id number] Name: Laura Bentley RN Position: S RN Member Role: Primary Care Nurse Name: Terra Mann RN Position: S RN Member Role: Primary Care Nurse Care Team Related Persons Name: GRADY YANG Address: home [address] [place] [id number]
--- OUTSIDE RECORDS SUMMARY | 2024-06-19 23:32 | XMS_ITS | Continuity of Care Document ---
Author Organization [facility] Address [address] [place] [address]- Care Team Providers Care Bat Person Name Role Phone Sammy WHITE, Rut Primary Care Physician Encounter [facility] Date(s): 01/11/22 - 02/10/22 [facility] [address] [place], [place] [address] Allergies, Adverse Reactions, Alerts Substance Reaction Severity [...] outbreak, # 15 tablet, 3 Refills, Maintenance, 01/12/22 8:59:00 EDT, Tablet, [id number], 190.5, cm, 06/28/20 13:59:00 EST, Height Start Date: 01/12/22 Stop Date: 02/01/22 Status: Ordered Problem List Condition Effective Dates Status Health Status Inform ant ADHD - Attention deficit dis order with hyperactivity(Confirmed) 1989 Active Social History Social History Type Response Smoking Status Former smoker entered on: 08/16/14 Sex Male
--- OUTSIDE RECORDS SUMMARY | 2024-06-19 23:32 | XMS_ITS | Continuity of Care Document ---
Author Organization [facility] Address [address] [place] [address]- Care Team Providers Care [facility] Name Role Phone Rut Christianson MD Primary Care Physician [phone] [place] [facility] [place](s): 11/14/23 - 12/20/[address] [address]- Attending Physician: Brit Reeder MD Admitting Physician: Brit Reeder MD Referring Physician: Brit Reeder MD Allergies, Adverse Reactions, Alerts No Known [...] tablet, 3 Refills, Maintenance, 10/15/23 18:17:00 EST, [id number], 190, cm, 11/16/22 9:37:00 EDT, Height, [...] Refills, Maintenance, 10/26/22 12:26:00 EST, ER Capsule, [facility], Partial fill upon patient [...] Personnel Name: Rut Christianson MD Position: [facility] Physician - Primary Care Member Role: PCP Address: Address: [address] [place] [address]- Name: Laura Benltey RN Position: S RN Member Role: Primary Care Nurse Name: Terra Mann RN Position: S RN Member Role: Primary Care Nurse Care Team Related Persons Name: FLORY YANGATE Address: home [address] [place] [address]
--- OUTSIDE RECORDS SUMMARY | 2024-06-19 23:32 | XMS_ITS | Continuity of Care Document ---
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 injectable solution) 0.4 mL = 40 mg, Subcutaneous Injection, Every 24 hours, # 12 mL, 0 Refills, [facility] [address] [address] [phone] Next Dose: Hydromorphone (Dilaudid 2 mg oral tablet) 1 tablet = 2 mg, By Mouth, Every 3 hours, # 40 tablet, 0 Refills, [facility] 3, [address] [place] [phone] Next Dose: Indomethacin (indomethacin 75 mg oral capsule, extended release) 1 capsule = 75 mg, By Mouth, Daily, # 56 capsule, 0 Refills, with food or milk, [facility] 3, [address] [place] [phone] Next Dose: Pantoprazole (Protonix 40 mg oral delayed release tablet) 40 mg, By Mouth, Daily, # 30 each, 0 Refills, [facility] 3, [address] [id number] [phone] Next Dose: Patient Instructions Given:Please contact Dr. Zurita???s office with any further questions or concerns regarding your injury or surgery. Please take a laxative or stool softener, such as colace or milk of magnesia, as needed for constipation. Elevate operative extremity to reduce swelling; keep bandage clean and dry If any fever, chills, uncontrolled pain, or any other issues you feel may be urgent, do present, consult your physician and/or return to the Emergency Room. You may resume your home medications as prescribed by your PCP You will need to continue lovenox injections for DVT prophylaxis (to prevent blood clots) for at least 1 month or until instructed otherwise by your surgeon. Continue touchdown weightbearing right leg with hip dislocation precautions until advanced in the office. No active hip ROM until instructed otherwise. You may get incision wet in the shower 5 days after surgery. Remove dressing and allow soap and water to run over the incision. Pat incision dry and replace dry dressing. Change dry dressing daily. No swimming, tub baths or soaking leg until stephen removed and incisions fully healed. Do not drive until instructed otherwise. Dr. Zurita has recommended taking indomethacin 75mg once daily for 8 weeks at home for the prevention of heterotopic bone formation. Start first dose on Thursday 10/26. This should be stopped if you have any episodes of bleeding. You will need to continue pantoprazole while taking indomethacin. Education Given: Patient Follow-up:Added Follow Up Time Frame Comments Germania Zurita MD 2 to 3 weeks Please call to schedule follow-up appointment . Home Health Face to Face I certify that this patient is under my care and that I or an allowed non- physician practitioner working with me, had a lfev-aw-oipl encounter with the patient on this date: 10/22/2022. The encounter with the patient was in whole, or in part, for the following medical condition, whichis the primary reason for home health care: Closed displaced fracture of posterior wall of right acetabulum. Nursing. Physical Therapy: Home exercise program to strengthen, increase ROM, TDWB RLE w/ hip dislocation precautions. No active hip ROM. Occupational Therapy: Fall prevention training. Homebound due to: Inability to leave home without assistance/supervision, Inability to ambulate without assistance, Pain, decreased strength, and endurance, Limited weight bearing. Physician Signature: Germania Zurita MD . MEDICATION LIST (Selected) Prescriptions Prescribed Dilaudid 2 mg oral tablet: 1 tablet = 2 mg, By Mouth, Every 3 hours, PRN Pain , Moderate, # 40 tablet, 0 Refills, Acute 10/29/22 11:07:00 EST, 10/22/22 11:06:00 EST, Tablet, [facility],Partial fill upon patient request if the prescription is for a schedule II opi... PT/OT Equipment: See Instructions, # 1 each, Maintenance, Over toilet commode Dx: Acetabulum fracture Length of need: 6 months, 10/22/22 10:36:00 EST, Supply PT/OT Equipment: See Instructions, # 1 each, Maintenance, Shower chair/tub transfer bench Dx: Acetabulum fracture Length of need: 6 months, 10/22/22 10:35:00 EST, Supply Protonix 40 mg oral delayed release tablet: = 40 mg, By Mouth, Daily, # 30 each, 0 Refills, Maintenance, 10/22/22 11:06:00 EST, EC Tablet, 190, cm, 10/22/22 7:09:00 EST, Height, 82.5, kg, 10/18/22 20:47:00 EST, Dry Weight acetaminophen 325 mg oral tablet: 650 mg, 2, tablet, By Mouth, Every 6 hours, # 100 tablet, Refills0, Tot. Refills 0, Acute 11/05/22 11:07:00 EDT, 10/22/22 11:06:00 EST, Route to Pharmacy Electronically, [facility], Partial fill upon patient request if the prescription... docusate-senna 50 mg-8.6 mg oral capsule: 2 capsule, By Mouth, 2 times a day, PRN Constipation, # 30 capsule, 0 Refills, Acute 10/21/23 11:07:00 EST, 10/22/22 11:06:00 EST, Capsule, [facility], Partial fill upon patient request if the prescription is for a schedule II opioid igor... enoxaparin 40 mg/0.4 mL injectable solution: 0.4 mL = 40 mg, Subcutaneous Injection, Every 24 hours, for 30 days, # 12 mL, 0 Refills, Acute 11/21/22 11:06:00 EDT, 10/22/22 11:06:00 EST, Injection, [facility], Partial fill upon patient request if the prescription is for a schedule I... indomethacin 75 mg oral capsule, extended release: 1 capsule = 75 mg, By Mouth, Daily, with food ormilk, # 56 capsule, 0 Refills, Maintenance, 10/26/22 12:26:00 EST, ER Capsule, [facility], Partial fill upon patient request if the prescription is for a schedule II opioid drug., 190, cm,... Therapies Wound care: Daily dry dressing changes. * Mari Armenta RN: PERFORM Event Display: Patient Education/Instruction Authored Date: [id number] Inpatient Adult Discharge Instructions [address] [address] Name: JHONNY CERRATO : 1985 Visit: 10/18/2022 18:47:00 Current Date: 10/22/2022 14:24 Account: [id number] Inpatient Adult Discharge Instructions We would like to thank you for allowing us to assist you with your healthcare needs. The following includes patient education materials and information regarding your injury/illness. Our entire staffstrives to provide an excellent experience for our patients and their families. PLEASE ENSURE YOU FOLLOW-UP PER THE INSTRUCTIONS BELOW! ?? YOUR OPINION IS IMPORTANT TO US! Please complete the survey you may receive by mail or email. Your feedback will be used to make improvements to the healthcare experiences of our patients and their families. Surveys are administered by [employer] ?? If further treatment with your primary care physician or another doctor is recommended, it is important for you to keep the appointment. Call your primary care physician or return to the Emergency Department immediately if your condition worsens, fails to improve, or new symptoms develop. If you need to find a doctor, you can call [facility] [employer] for a referral at [phone] or toll free at [phone] or log in to [email or web address].. ?? You can view and manage your care through the patient portal or by using a health care ryan of your choosing. [employer] is a website that allows you to securely view your medical information including your hospital discharge summary, office visit summaries, medications and follow-up visits. You can also request appointments, renew medications, and request access to your medical information using a health care ryan of your choosing, or just ask a question. You can enroll at [email or web address] or register during your next office visit. You have been discharged from [facility], Patient Care Unit: S3. If you have any questions regarding these instructions after you leave, please call us and we will be happy to assist you. [facility] Your Care Team Attending Physician Yudith WHITE, Germnaia Consulting Providers Yudith WHITE, Germania; Robel WHITE, Jagdish Discharging Providers Delphine Zuluaga Reason for Admission Consult requested on patient with episode of hematemesis. Your Diagnosis Pelvic fracture Hematemesis Closed dislocation of right hip Closed displaced fracture of posterior wall of right acetabulum Tests Performed Below is a partial list of the tests performed during your hospitalization. You may have had other tests and procedures not included in this list. Please discuss all test results with your provider. Alcohol Level Amphetamine Urine Screen Amylase Barbiturate Urine Screen Basic Metabolic Panel Benzodiazepine Urine Screen Cannabinoid Urine Screen CBC CBC w/ Differential Cocaine Urine Screen COVID-19 (2019 Novel Coronavirus) PCR COVID-19 (Novel Coronavirus), Rapid PCR Electrolytes HOLD GEL TUBE HOLD GREEN TUBE Hold Red Top Tube Lactic Acid Level Lytes Opiate Screen Urine PT (INR) PTT Type and Screen Urinalysis w/hold for Urine Culture CT 3D Rend W/O Post Proc CT Abd/Pelvis W/ IV Contrast Only CT Ext Lower W/O Contrast Right XR C-Arm > 1 Hour XR Chest Portable XR Femur 2 Views Right XR Hip 1 View Right XR Hip Comp 2 Views Right XR Knee 1 or 2 Views Right XR Pelvis 1 or 2 Views XR Pelvis Min 3 Views Primary Care Provider Not on Staff, PCP Advance Directive Health Care Proxy on File Yes - Health Care Proxy Discharge Vitals Temperature: 98 DegF Height: 190 cm Pulse Rate: 58 bpm Weight: 82.5 kg Respiratory Rate: 18 br/min Body Mass Index: 22.85 kg/m2 Respiratory Rate: 18 br/min Body surface area: 2.09 Systolic Blood Pressure: 113 mm Hg ?? Diastolic Blood Pressure: 70 mm Hg ?? Oxygen Saturation: 100 % ?? Studies Pending All tests and labs ordered during this hospital stay have been completed unless listed below. Please discuss all pending results with your provider listed above in these instructions. ?? CBC Pathology Tissue Request () RBCs for Surgery What to do next Instructions From Your Doctor Please contact Dr. Zurita's??office with any further questions or concerns regarding your injury or surgery. Please take a laxative or stool softener, such as colace or milk of magnesia, as needed for constipation. Elevate operative extremity to reduce swelling; keep bandage clean and dry If any fever, chills, uncontrolled pain, or any other issues you feel may be urgent, do present, consult your physician and/or return to the Emergency Room. You may resume your home medications as prescribed by your PCP You will need to continue lovenox injections for DVT prophylaxis (to prevent blood clots) for at least 1 month or until instructed otherwise by your surgeon. Continue touchdown weightbearing right leg with hip dislocation precautions??until??advanced in theoffice.?? No active hip ROM until instructed otherwise. You may get incision wet in the shower 5 days after surgery.?? Remove dressing and??allow soap and water to run over the incision.?? Pat incision dry and replace dry dressing. Change dry dressing daily. No swimming, tub baths or soaking leg until stephen removed and incisions fully healed. Do not drive until instructed otherwise. Dr. Zurita has recommended??taking indomethacin 75mg once daily for 8 weeks at home??for the prevention of heterotopic bone formation.?? Start first dose on Saturday??10/26.?? This should be stopped if you have any episodes of bleeding.?? You will need to continue pantoprazole while taking indomethacin. Discharge Orders You Need to Schedule the Following Appointments Follow Up with??Germania Zurita MD When??Within 2 to 3 weeks Why: Please call to schedule follow-up appointment Where: [address] [place] [address] Business (1) Discharge Medications JHONNY CERRATO :1985 Visit Date:10/18/2022 Medications: Please continue your medications until treatment is completed or stopped by your provider. Medications not listed below should be discontinued. Discuss any questions related to medications with your provider. What How Much When Instructions Next Dose New Acetaminophen (acetaminophen 325 mg oral tablet) 2 tab(s) Oral Every 6 hours Pickup at [place] [address] last dose today at 2:15 pm New Docusate-Senna (docusate-senna 50 mg-8.6 mg oral capsule) 2 capsule Oral Twice a day as needed for Constipation Pickup at [place] [address] as needed New Durable Medical Equipment (PT/ OT Equipment) See instructions Shower chair/ tub transfer bench ?? Dx: Acetabulum fracture Length of need: 6 months ?? Printed Prescription New Durable Medical Equipment (PT/ OT Equipment) See instructions Over toilet commode ?? Dx: Acetabulum fracture Length of need: 6 months ?? Printed Prescription New Enoxaparin (enoxaparin 40 mg/ 0.4 mL injectable solution) 0.4 Milliliter Subcutaneous Injection Every 24 hours Duration: 30 Days Pickup at [place] [address] 228 AM New Hydromorphone (Dilaudid 2 mg oral tablet) 1 tab(s) Oral Every 3 hours as needed for Pain , Moderate Pickup at [place] [address] last dose today at 2:15 pm New Indomethacin (indomethacin 75 mg oral capsule, extended release) 1 capsule Oral Daily Duration: 8 week(s) with food or milk ?? Pickup at [place] [address] 228 AM New Pantoprazole (Protonix 40 mg oral delayed release tablet) 40 Milligram Oral Daily Duration: 30 Days Pickup at [place] [address] 228 AM Pharmacy Information [place] [address]: [address] [place], [place] [id number] [phone] Test Results Below is a partial list of the most recent Laboratory test results done prior to this discharge. You may have had other tests and procedures not included in this list. Please discuss all test resultswith your provider. RBC Available - RE (10/19/2022) RBC Unit ID - [id number] (10/19/2022) Alcohol Level (10/18/2022) ???Ethanol, Serum or Plasma - NONE DETECTED Amphetamine Urine Screen (10/18/2022) ???Amphetamine Screen, Urine - NONE DETECTED Amylase (10/18/2022) ???Amylase - 49 units/L Barbiturate Urine Screen (10/18/2022) ???Barbiturate Screen, Urine - NONE DETECTED Basic Metabolic Panel (10/18/2022) ???Sodium - 140 mmol/L???Potassium - 3.3 mmol/L???Chloride - 105 mmol/L???Bicarbonate Level - 26 mmol/L???Anion Gap - 9???Glucose Level - 98 mg/dL???BUN - 11 mg/dL???Creatinine-Blood - 0.8 mg/dL???Estimated GFR Creatinine - 69 ML/MIN/1.73 M2???Calcium - 9.0 mg/dL Benzodiazepine Urine Screen (10/18/2022) ???Benzodiazepine Screen, Urine - NONE DETECTED Cannabinoid Urine Screen (10/18/2022) ???Cannabinoid Screen, Urine - POSITIVE CBC (10/21/2022) ???WBC - 12.9 k/mm3???RBC - 3.36 m/mm3???Hgb - 11.0 Gm/dL???Hct - 31.7 %???MCV - 94.3 femtoliters???MCH - 32.7 pg???MCHC - 34.7 g/dL???Platelet Count - 181 k/mm3???RDW-SD - 40.2 femtoliters???MPV - 11.1 femtoliters???Nucleated RBC (Automated) - 0.0 #/100 WBC'S???Abs. NRBC - 0.0 k/mm3 CBC w/ Differential (10/18/2022) ???WBC - 17.3 k/mm3???RBC - 4.46 m/mm3???Hgb - 14.4 Gm/dL???Hct - 41.9 %???MCV - 93.9 femtoliters???MCH - 32.3 pg???MCHC - 34.4 g/dL???Platelet Count - 199 k/mm3???RDW-SD - 40.7 femtoliters???MPV - 11.1 femtoliters???Nucleated RBC (Automated) - 0.0 #/100 WBC'S???Abs. NRBC - 0.0 k/mm3???Abs. Neut - 14.0 k/mm3???Abs. Lymph - 2.0 k/mm3???Abs. [place] - 1.2 k/mm3???Abs. Eo - 0.1 k/mm3???Abs. Baso - 0.1 k/mm3???Neut % - 80.8 %???Lymph % - 11.3 %???[place] % - 6.8 %???Eos % - 0.3 %???Baso % - 0.3 %???Imm Gran - 0.5 %???Abs. Imm Gran - 0.1 k/mm3 Cocaine Urine Screen (10/18/2022) ???Cocaine Metabolite Screen, Urine - NONE DETECTED COVID-19 (2019 Novel Coronavirus) PCR (10/22/2022) ???COVID-19 PCR Specimen Source - NASAL???COVID-19 PCR Result - NEGATIVE COVID-19 (Novel Coronavirus), Rapid PCR (10/18/2022) ???COVID-19 by RT-PCR - NEGATIVE Electrolytes (10/21/2022) ???Sodium - 136 mmol/L???Potassium - 4.4 mmol/L???Chloride - 102 mmol/L???Bicarbonate Level - 26 mmol/L???Anion Gap - 8 HOLD GEL TUBE (10/19/2022) ???Hold Gel Top - SPECIMEN DISCARDED AFTER 1 WEEK HOLD GREEN TUBE (10/18/2022) ???Hold Green Top - SPECIMEN DISCARDED AFTER 1 WEEK Hold Red Top Tube (10/18/2022) ???Hold Red Top - SPECIMEN DISCARDED AFTER 1 WEEK Lactic Acid Level (10/18/2022) ???Lactate - 1.3 mmol/L Lytes (10/20/2022) ???Sodium - 132 mmol/L???Potassium - 3.9 mmol/L???Chloride - 98 mmol/L???Bicarbonate Level - 27 mmol/L???Anion Gap - 7 Opiate Screen Urine (10/18/2022) ???Opiate Screen, Urine - NONE DETECTED PT (INR) (10/18/2022) ???INR - 1.1???Protime (PT) - 11.3 seconds PTT (10/18/2022) ???APTT - 25.5 seconds Type and Screen (10/18/2022) ???Blood Type - O Positive???Antibody Screen - Negative Urinalysis w/hold for Urine Culture (10/18/2022) ???Appear/Color, Urine - LIGHT YELLOW???Specific [place], Urine - 1.048???pH, Urine - 7.0???Albumin, Urine - NEGATIVE???Glucose, Urine - NEGATIVE???Ketones, Urine - 1+???Bilirubin, Urine - NEGATIVE???Hemoglobin, Urine - NEGATIVE???Nitrite, Urine - NEGATIVE???Leukocyte, Urine - NEGATIVE???Urobilinoge n - NORMAL? ?WBC's, Urine - 1 /HPF? ?RBC's, Urine - <1 /HPF? ?Hold Urine Culture - Testing available 48 hours from time of collection. Allergies (NKA means No Known Allergies) NKA Problems No qualifying data available Education Materials Below is the list of Educational Leaflet Providered with your Discharge Instructions. Valuables and Belongings I fully understand and agree that [facility] accepts no responsibility for all my personal property including clothing, toilet articles, radios, jewelry, dentures, hearing aids, rings, money, or any other property that is in my possession or is brought to me after admission. I understand certain valuables may be placed in a hospital safe for a short period of time. I understand that the hospital is not liable for loss or damage due to accident, fire, or other natural occurrence while said property is in the safe. I accept full responsibility for any personal property that I keep with me, and will not hold the hospital responsible in case of loss or disappearance. I acknowledge that i have been encouraged to send valuables and belongings home. ?? Review of Valuable and Belonging List: With patient Date for Pt to Sign Valuables/Belongings: 10/22/22 14:00:00 ?? Other Discharge Information ? Pulmonary Rehab Status?? Pulmonary Rehab Discharge Status?? Respiratory Rate: 18 br/min Respiratory Rate: 18 br/min ? Common Emergency Awareness Tips IS IT A STROKE? Act FAST and Check for these signs: FACE Does the face look uneven? ARM Does one arm drift down? SPEECH Does their speech sound strange? TIME Call at any sign of stroke ?? Heart Attack Signs Chest discomfort: Most heart attacks involve discomfort in the center of the chest and lasts more than a few minutes, or goes away and comes back. It can feel like uncomfortable pressure, squeezing, fullness or pain. Discomfort in upper body: Symptoms can include pain or discomfort in one or both arms, back, neck, jaw or stomach. Shortness of breath: With or without discomfort. Other signs: Breaking out in a cold sweat, nausea, or lightheaded. Remember, MINUTES DO MATTER. If you experience any of these heart attack warning signs, call to get immediate medical attention! ?? Smoking can increase your chances of developing chronic health problems and can cause harmful effects to other family members in your house. If you smoke, you are strongly encouraged to quit. Please call [facility] [employer] Link at [phone] or 0-626-559emoteShare ([phone]) or log in to [email or web address] for referrals to smoking cessation programs. ?? The National Suicide Prevention Hotline is available 18/03 if you or someone you know needs to find a reason to keep living. By calling 6-534-808-[place] (6023) you'll be connected to a skilled, trained counselor at a crisis center in your area. INPATIENT DISCHARGE INSTRUCTIONS SIGNATURE PAGE JHONNY CERRATO Location:[facility] Registration Date and Time:10/18/2022 18:47 EST Primary Care Physician: Not on Staff, PCP I JHONNY CERRATO, have received the above patient education materials/instructions and have verbalized understanding. If ambulance or transport services are being used I further acknowledge being given a choice of service. ?? If you need to contact me, please call me at this number: . Patient/Animal Control Specialist Name: Patient/Animal Control Specialist Signature: Relationship to Patient: Witness Name/Signature: Date: * Mari Armenta RN: PERFORM Event Display: Patient Education Leaflets Authored Date: [id number] Giving a Subcutaneous (Sub-Q) Injection (Single Medicine) ?? [id number] Giving a Subcutaneous (Sub-Q) Injection (Single Medicine) Giving yourself a subcutaneous injection (also called a sub-Q injection) means inserting medicine into the fatty areas just under your skin. The needle used for a sub-Q injection is very small and doesn???t cause much pain. Many medicines are given in this way. Your healthcare provider has prescribed the amount and times you need to give the medicine. The name of my medicine is: Amount per injection:?? Times per day: ?? Step 1. Preparing a work area ??? Put any pets in another room. ??? Wash your hands for 1 to 2 minutes with??liquid soap and clean, running water. ??? Clean your area with soap and water. Dry with a paper towel. ?? Step 2. Gathering your supplies Collect the following items: ??? Your medicine. Keep in mind that some medicine vials must be taken out of the refrigerator at aspecific amount of time before you inject them. Read the label and follow the instructions. ??? A sterile disposable syringe (don???t reuse your syringes) ??? Alcohol wipes or swabs ??? Special container (sharps container) to throw out the used syringe. You can buy a sharps container at a pharmacy or medical supply store. You can also use an empty laundry detergent bottle, or any other puncture-proof container and lid. Then wash your hands again. ?? Step 3. Choosing your injection site Injection sites in adults include the belly (abdomen), front of thighs, back of upper arms and upper buttocks. ??? You may find??that the easiest and safest places to inject medicine are these areas: o Back of??your upper arms o Upper thighs o Belly (abdomen), but avoid the belly button and waist area ??? If you are very thin, don???t use??your belly for your injection site, unless your healthcare provider tells you to. ??? Stay away from areas that are red, swollen, or bruised. ??? Don't inject in the same site twice in a row.??Choose a site that is at least 2 inches away from your last injection site. ?? Step 4. Getting the medicine ready Note: Skip this step if you're using a disposable injection pen. This is a syringe already filled (or prefilled) with a set amount of medicine. Once you inject the medicine, you throw the pen away. ??? Check the medicine in the vial. Look for changes in color, cloudiness, or something floating in it. Also check the expiration date. o Don???t use the medicine if you think it looks different. o If you're using insulin, ask your healthcare provider or pharmacist how it should look in the vial. Some insulin is normally cloudy. o Call your provider or pharmacist if you??are not sure if the medicine is safe to use. ??? Remove the cap from the vial. Clean the rubber stopper on top of the vial??with an alcohol wipe. ??? Remove the syringe from its package. Don???t use a syringe from a previously opened package or a package with holes in it. ??? Take the cap off??the needle. Pull back the plunger, drawing air into the syringe. The amount of air should be the same as the amount of medicine yourprovider has prescribed for you. ??? Push the needle into the rubber stopper of the vial. Once the n eedle is through the stopper, push the plunger on the syringe so that the air goes into the vial. ??? Keep the needle in the stopper and turn the vial upside down. ??? Keep the tip of the needle in the liquid and pull back on the plunger. The medicine will flow into the syringe. ??? Fill the syringe to your prescribed dose amount. o If you get too much, push some medicine back into the vial with t he plunger. o If you didn???t get enough, keep pulling on the plunger. ??? Check for air bubbles inthe syringe. o If you see air bubbles in the syringe, gently tap the syringe while the needle is still in the stopper. The air bubbles will move to the top of the syringe. o Push the plunger slightly, and the air will go back into the vial. ??? Check to make sure the syringe contains the prescribed amount of medicine. Then pull the needle out of the vial. ?? Step 5. Giving the injection ??? Using an alcohol swab, clean the injection site. Make sure the cleaned area is about 2 inches in diameter. ??? While the injection site dries, double-check that you have the right amount of medicine in your syringe. ??? Place your thumb and forefinger on either side of the clean injection site.Pinch up about 2 inches of skin. ??? Hold the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 rehab, possibly tomorrow pending placement/pain control XR Pelvis GE 3 Views * [facility] , CIS S: TRANSCRIBE Servando Devi MD: VERIFY Event Display: Result: Authored Date: [id number] Pelvis Min 3 Views Reason: Trauma; Clinical Question(s): Position Fixation; Special Instructions: 5 view pelvis please, AP, inlet, outlet, 2 judet views; Order Comment: patient refusing to comedown to xray to much pain. PA is going to talk to patient. 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 Patient is refusing today. gm COMPARISON: 10/18/2022 and 10/19/2022 FINDINGS: Right acetabular fracture status post fixation with 2 plates and multiple screws. No evidence of hardware loosening. Alignment of fragments appears anatomic. No new fracture or dislocation is present. Bone mineralization is normal. The left hip and both sacroiliac joints are normal. Soft tissues are unremarkable. IMPRESSION: Status post ORIF of comminuted right acetabular fracture with anatomic alignment of fragments. WSN: [id number] Ordering Physician: Loni Valdes Dictated By: Servando Devi MD Dictated Date/Time: 10/21/22 5:23 pm Reviewed By: Servando Devi MD Signed By: Servando Devi MD Signed Date/Time: 10/21/22 5:23 pm Transcribed By: HILLARY Transcribed Date/Time: 10/21/22 5:21 pm XR Hip - right 2 Views * [facility] , CIS S: TRANSCRIBE Regan Black MD: VERIFY Event Display: Result: Authored Date: [id number] PROCEDURE: Hip Comp 2 Views Right, C-Arm > 1 Hour CLINICAL INDICATION: 37 years old Male with RIGHT pelvis ORIF.. COMPARISONS: CT RIGHT hip, RIGHT hip radiographs October 18, 2022. TECHNIQUE: Fluoroscopy support was provided in the operating room for the referring physician usingthe C-arm. There was no radiologist in attendance. This report is provided for documentation purposes. In addition, a total of four views of the RIGHT hip in the frontal and lateral projections are obtained in the OR with the C-arm. Fluoroscopy time: 47.45 seconds. Exposure: 24.47 mGy. TECHNOLOGIST TIME: Four hours and five minutes. FINDINGS: Long metallic plate is fixated by several screws to the posterior RIGHT acetabulum. Short additional plate is fixated to the RIGHT acetabulum posteriorly. A screw traverses one of the RIGHT acetabular fractures without plate. IMPRESSION: 1. C-arm study performed in the OR. 2. Improved alignment after ORIF of RIGHT acetabular fracture. Thank you for allowing me to participate in the care of this patient. WSN: [id number] Ordering Physician: Germania Zurita Dictated By: Regan Black MD Dictated Date/Time: 10/19/22 5:12 pm Reviewed By: Regan Black MD Signed By: Regan Black MD Signed Date/Time: 10/19/22 5:12 pm Transcribed By: HILLARY Transcribed Date/Time: 10/19/22 5:07 pm XR Pelvis 1 or 2 Views * [facility] , CIS S: TRANSCRIBE Regan Black MD: VERIFY Event Display: Result: Authored Date: [id number] PROCEDURE: Pelvis 1 or 2 Views CLINICAL INDICATION: 37 years old Male with RIGHT acetabular fracture ORIF. TECHNIQUE: Portable AP view of the RIGHT hip and pelvis excluding the iliac crests obtained. COMPARISONS: RIGHT hip and femur radiographs, RIGHT hip CT of yesterday, intraoperative images of earlier today]. FINDINGS: Bones and joints: Two metallic plates and screws are noted internally fixating a comminuted RIGHT acetabular fracture which appears in close to anatomic alignment on this single projection. No dislocation of the RIGHT hip. An additional screw which was present intraoperatively and did not traverse a plate has been removed. Soft Tissues: Expected postoperative changes including subcutaneous gas and incisional stephen are seen lateral to the RIGHT hip. Jimenez catheter ending in the central pelvis.. No other evidence of radiopaque foreign body. IMPRESSION: 1. ORIF comminuted RIGHT acetabular fracture with close to anatomic alignment as can be seen in thesingle frontal projection. 2. Expected postoperative changes. Thank you for allowing me to participate in the care of this patient. WSN: [id number] Ordering Physician: Germania Zurita Dictated By: Regan Black MD Dictated Date/Time: 10/19/22 5:15 pm Reviewed By: Regan Black MD Signed By: Regan Black MD Signed Date/Time: 10/19/22 5:15 pm Transcribed By: HILLARY Transcribed Date/Time: 10/19/22 5:13 pm * [facility] , CIS S: TRANSCRIBE Dmitry Oakes MD: VERIFY Event Display: Result: Authored Date: [id number] Pelvis 1 or 2 Views Reason: Trauma; Clinical Question(s): Fracture COMPARISON: None. FINDINGS: Displaced right acetabular fracture superiorly and laterally. Dislocation of the right hip joint with superior and posterior displacement of the femoral head relative to the joint. IMPRESSION: Displaced acetabular fracture and dislocated hip joint on the right. A critical result message ([place]) has been communicated via the [employer] system on 10/18/2022 1:13 PM, Message ID [id number]. WSN: [id number] Ordering Physician: Gallo Marina Dictated By: Dmitry Oakes MD Dictated Date/Time: 10/18/22 1:13 pm Reviewed By: Dmitry Oakes MD Signed By: Dmitry Oakes MD Signed Date/Time: 10/18/22 1:13 pm Transcribed By: HILLARY Transcribed Date/Time: 10/18/22 1:11 pm Portable XR Chest Views * CARLOS ALBERTOS[facility]alexbe , CIS S: TRANSCRIMagnus Palma MD: VERIFY Event Display: Result: Authored Date: [id number] Chest Portable Reason: ; Pain; Clinical Question(s): Fracture, pneumothorax, pulmonary contusion COMPARISON: None. FINDINGS: LINES AND TUBES: None. LUNGS AND PLEURA: Clear lungs. Normal pulmonary vascularity. No pleural effusion. No pneumothorax. HEART, MEDIASTINUM AND SAWYER: Heart is normal in size. Normal mediastinal and hilar contour. BONES AND SOFT TISSUES: No displaced rib fracture identified. IMPRESSION: No acute abnormality. WSN: [id number] Ordering Physician: Gallo Marina Dictated By: Magnus Horton MD Dictated Date/Time: 10/18/22 12:36 p Reviewed By: Magnus Horton MD Signed By: Magnus Horton MD Signed Date/Time: 10/18/22 12:36 pm Transcribed By: HILLARY Transcribed Date/Time: 10/18/22 12:[address] Abdomen and Pelvis W contrast IV * [facility] , CIS S: TRANSCRIBE Diana Power MD: VERIFY Event Display: Result: Authored Date: [id number] CT Abd/Pelvis W/ IV Contrast Only Reason: Other:; Abd trauma, blunt; Clinical Question(s): Other:; solid organ injury, perforation free fluid TECHNIQUE: Spiral CT through the abdomen and pelvis with IV contrast formatted in 3 planes. 100 cc of Omnipaque 300 was administered intravenously. This study was performed without oral contrast. Weight-based protocol using automatic tube modulation was used to optimize exposure parameters. CTDIvol Body: 12.70 mGy, DLP Body: 745 mGy*cm. COMPARISON: None. FINDINGS: Wet Process Technician View Findings, Lines and Tubes: None. Visualized Chest: Lung bases are clear. No pleural effusion. The heart is normal in size. No pericardial effusion. Diaphragm: Normal. Liver: Normal. Gallbladder: No CT evidence of gallbladder pathology. Bile ducts: No biliary ductal dilation. Spleen: Normal. Pancreas: Normal. Adrenal glands: Normal. Kidneys and ureters: No hydronephrosis, stones, or suspicious masses. Bladder: Normal. Reproductive organs: Unremarkable. Stomach, small bowel, and large bowel: Normal. Appendix: Normal. Peritoneum and retroperitoneum: No ascites or pneumoperitoneum. No omental or mesenteric lesions. Lymph nodes: No enlarged lymph nodes. Blood vessels: Normal. No aneurysm. No evidence of venous thrombosis. Incidentally noted is a circumaortic left renal vein Abdominal and pelvic wall and osseous structures: There is acute fracture or dislocation of the right hip joint, but the femoral head displaced posterior superiorly, with associated displaced comminuted fracture of the posterior acetabulum. There is associated surrounding soft tissue hematoma. No discrete circumscribed fluid collection seen. Mild fat stranding noted along the right deep retroperitoneal structures in the pelvis abutting theasymmetrically prominent right pyriformis muscle, likely posttraumatic. IMPRESSION: Posterior-superior dislocation of the right femoral acetabular joint with comminuted displaced fracture of the posterior acetabulum, with associated soft tissue hematoma/muscular injury. Mild fat stranding noted along the slightly asymmetrically prominent right pyriformis muscle in the deep retroperitoneal structures of the pelvis, likely posttraumatic. No discrete circumscribed fluid collection seen. No CT evidence of post traumatic abnormality in the internal organs of the abdomen/pelvis. Findings communicated with Dr. Del Valle via [employer] at the time of the dictation with receipt acknowledged WSN: [id number] Ordering Physician: Gallo Marina Dictated By: Diana Power MD Dictated Date/Time: 10/18/22 1:00 pm Reviewed By: Diana Power MD Signed By: Diana Power MD Signed Date/Time: 10/18/22 1:00 pm Transcribed By: HILLARY Transcribed Date/Time: 10/18/22 12:45 pm XR Knee - right 1 or 2 Views * [facility] , CIS S: TRANSCRIBE Cynthia Goode DO F: SIGN Alejandro Groves MD, V: VERIFY Event Display: Result: Authored Date: [id number] Knee 1 or 2 Views Right, 2 views Reason: Trauma; Clinical Question(s): Fracture COMPARISON: None. FINDINGS: There is no evidence of acute or healing fracture, dislocation or bone lesion. No arthritic changes. No osteochondral defects or intra-articular loose bodies. No evidence of joint effusion. IMPRESSION: No acute osseous abnormality of the right knee. I have personally reviewed the images and I agree with this report. WSN: [id number] Ordering Physician: Servando Gerber Dictated By: Cynthia Goode DO Dictated Date/Time: 10/18/22 1:58 pm Reviewed By: Alejandro Groves MD, V Signed By: Alejandro Groves MD, V Signed Date/Time: 10/18/22 2:03 pm Transcribed By: HILLARY Transcribed Date/Time: 10/18/22 1:51 pm XR Hip - right Single view * BHSPowerscmanisha , CIS S: TRANSCRIBE John Howell MD: VERIFY Event Display: Result: Authored Date: [id number] Hip 1 View Right INDICATION: Postreduction right hip fracture dislocation COMPARISON: Earlier today FINDINGS: Successful reduction of right hip dislocation with improved displacement of posterior lateral acetabular fragments. IMPRESSION: See above. WSN: [id number] Ordering Physician: Servnado Gerber Dictated By: John Howell MD Dictated Date/Time: 10/18/22 6:03 pm Reviewed By: John Howell MD Signed By: John Howell MD Signed Date/Time: 10/18/22 6:03 pm Transcribed By: HILLARY Transcribed Date/Time: 10/18/22 6:[address] Lower extremity WO contrast * SHOSHANA Porras S: Bravo Urias MD: VERIFY Event Display: Result: Authored Date: [id number] CT Ext Lower W/O Contrast Right Hx of Present Illness: Right hip posterior dislocation status post reduction. TECHNIQUE: Helical CT without contrast formatted in 3 planes. Weight-based protocol using automatictube modulation was used to optimize exposure parameters. CTDIvol Body: 10.41 mGy, DLP Body: 316 mGy*cm. COMPARISONS: Same day CT abdomen and pelvis FINDINGS: Bones and joints: Right sacroiliac joint appears intact. Comminuted and displaced acetabular fracture involving the acetabular roof and posterior wall. The largest fracture fragment measures up to 6.6 x 2.0 x 2.8 cm (AP by TRV by SI. The large articular surface fracture fragment is displaced laterally by 2 cm and superiorly by 0.7 cm. There is comminution of the lateral margin of the acetabulum. Multiple small fracture fragments are seen in the expected location of the posterior wall of the acetabulum. The femoral head is appropriately located within the right acetabulum. The pubic symphysis appears intact. Small cortical depression of the anterior femoral head. Soft Tissues: Moderate soft tissue edema surrounds the acetabular fracture. Multiple small foci of gas. IMPRESSION: Comminuted displaced right acetabular fracture as described above. The right hip is been relocated. Small cortical depression of anterior femoral head likely reflecting impaction fracture. WSN: [id number] Ordering Physician: Servando Gerber Dictated By: Bravo Perez MD Dictated Date/Time: 10/18/22 7:13 pm Reviewed By: Bravo Perze MD Signed By: Bravo Perez MD Signed Date/Time: 10/18/22 7:13 pm Transcribed By: HILLARY Transcribed Date/Time: 10/18/22 7:08 pm XR Femur - right 2 Views * SHOSHANA Porras S: John Calloway MD: VERIFY Event Display: Result: Authored Date: [id number] Right femur, AP and lateral views at 1913 Reason: Trauma. Right hip fracture dislocation COMPARISON: Postreduction right hip at 1739 FINDINGS: Recurrent lateral subluxation of the right hip including laterally displaced acetabular fracture component. No femur fracture. IMPRESSION: 1. No femur fracture. 2. Recurrent right hip subluxation and acetabular fracture displacement. WSN: [id number] Ordering Physician: Servando Gerber Dictated By: John Howell MD Dictated Date/Time: 10/18/22 7:24 pm Reviewed By: John Howell MD Signed By: John Howell MD Signed Date/Time: 10/18/22 7:24 pm Transcribed By: HILLARY Transcribed Date/Time: 10/18/22 7:19 pm Patient Care team information Care Team Personnel Name: Laura Bentley RN Position: [facility] RN Member Role: Primary Care Nurse Name: Not on Staff, PCP Position: [facility] Physician (General Medicine) Member Role: PCP Name: Terra Mann RN Position: [facility] RN Member Role: Primary Care Nurse Name: *[facility], Trauma Attending Position: [facility] ED Attendings Patient Name: *[facility], Trauma Resident Position: [facility] ED Medicine MD Name: Kathryn Jensen RN Position: [facility] ED RN W/OE and Tasks Member Role: Patient Care Provider Name: Wanda Maurer RN Position: [facility] ED RN W/OE and Tasks Member Role: Patient Care Provider Name: Marian Day Position: [facility] ED TA KRYSTEN Name: Parvin Perez Position: [facility] ED OA Charge Member Role: ED Associate
--- OUTSIDE RECORDS SUMMARY | 2024-06-19 23:32 | XMS_ITS | Continuity of Care Document ---
Author Organization [facility] Adult Medicine Address [address] [place] [address]- Care Team Providers Care Registered Diet Technician Name Role Phone Rut Christianson MD Primary Care Physician Encounter [facility] [place] Date(s): 10/12/19 - 11/18/19 [facility] [address] [place] [address]- [facility] Attending Physician: Rut Chrsitianson MD Admitting Physician: Rut Christianson MD Allergies, Adverse Reactions, [...] Gm, 2 Refills, Maintenance, 10/12/19 16:00:00 EST, [place], [id number], 1 sprays Nares, Both Daily, 190.5, cm, 10/12/19 15:28:00 EST, Height Start Date: 2/17/20 Status: Ordered Problem List Condition Effective Dates Status Health Status Inform ant ADHD - Attention deficit dis order with hyperactivity(Confirmed) 1989 Active Social History Social History Type Response Smoking Status Former smoker entered on: 08/16/14 Sex Male
--- OUTSIDE RECORDS SUMMARY | 2024-06-19 23:32 | XMS_ITS | Continuity of Care Document ---
Author Organization [facility] Adult Medicine Address [address] [place] [address]- Care Team Providers Care Animal Care Supervisor Name Role Phone Rut Christianson MD Primary Care Physician Encounter [facility] [place] Date(s): 10/11/23 - 11/10/23 [facility] Adult Medicine [address] [place], [place] [address] Allergies, Adverse Reactions, Alerts No Known Allergies [...] tablet, 3 Refills, Maintenance, 10/15/23 18:17:00 EST, [id number], 190, cm, 11/16/22 9:37:00 EDT, Height, [...] Refills, Maintenance, 10/26/22 12:26:00 EST, ER Capsule, [facility], Partial fill upon [...] Team Personnel Name: Rut Christianson MD Position: [facility] Physician - Primary Care Member Role: PCP Address: Address: [address] [place] [address]- Name: Laura Bentley RN Position: [facility] RN Member Role: Primary Care Nurse Name: Terra Mann RN Position: S RN Member Role: Primary Care Nurse Care Team Related Persons Name: GRADY YANG Address: home [address] [place] [address]
--- OUTSIDE RECORDS SUMMARY | 2024-06-19 23:32 | XMS_ITS | Continuity of Care Document ---
Author Organization [facility] Adult Medicine Address [address] [place] [address]- Care Team Providers Care Junior High School Teacher Name Role Phone Rut Christianson MD Primary Care Physician En[place] [facility] [place] Date(s): 08/18/20 - 10/07/20 [facility] Adult Medicine [address] [place] [address]- Attending Physician: Anuel Coyle MD Admitting Physician: Anuel Coyle MD Allergies, Adverse Reactions, Alerts Substance Reaction [...]
--- OUTSIDE RECORDS SUMMARY | 2024-06-19 23:32 | XMS_ITS | Continuity of Care Document ---
Author Organization [facility] Adult [facility] Address [address] [place] [address]- Care Team Providers Care Potato Peeler Name Role Phone Rut Christianson MD Primary Care Physician En[place] [facility] [place](s): 08/03/19 - 08/03/19 [facility] [address] [place] [address]- [facility] Discharge Disposition: A-D/C Home Attending Physician: Rut Christianson MD Admitting Physician: Rut Christianson MD Referring Physician: Rut Christianson MD Allergies, Adverse Reactions, [...] hyperactivity(Confirmed) 1989 Active Shoulder dislocation(Confirmed) 01/2014 Active Results Orders for Microbiology Reports Name Date Throat Culture Grp A Strep 08/03/19 Microbiology Reports TEST:Group A Strep Culture STATUS:Unauthenticated BODY SITE: SOURCE:THROAT COLLECTED DATE/TIME:08/03/19 3:31 PM Group A Strep Culture SPECIMEN DESCRIPTION : THROAT SWAB SPECIAL REQUESTS : NONE CULTURE : NO BETA STREP ISOLATED TO DATE REPORT STATUS : PRELIMINARY REPORT Vital Signs Most recent to oldest [Reference Range]: 1 Height 190.50 cm (08/03/19 3:02 PM) Weight 73.63 kg (08/03/19 3:02 PM) Pulse Rate [55-90 bpm] 75 bpm (08/03/19 3:02 PM) Body Mass Index [18.5-24.99] 20.29 (08/03/19 3:02 PM) Blood Pressure [90-138/55-84 mm Hg] 117/ 65mm Hg (08/03/19 3:02 PM) Temperature [96.8-100.4 DegF] 99.9 DegF (08/03/19 3:02 PM) Blood pressure sites Arm, left (08/03/19 3:02 PM) Weight Obtained Via Standing scale (08/03/19 3:02 PM) Social History Social History Type Response Smoking Status Former smoker entered on: 08/16/14 Sex Male
--- OUTSIDE RECORDS SUMMARY | 2024-06-19 23:32 | XMS_ITS | Continuity of Care Document ---
Author Organization [facility] Adult Medicine Address [address] [place] [address]- Care Team Providers Care State Archivist Name Role Phone Rut Christianson MD Primary Care Physician [place] [facility] [place] Date(s): 11/16/19 - 11/23/19 [facility] Adult [facility] [address] [place] [address]- [facility] Attending Physician: Rut Christianson MD Admitting Physician: Rut Christianson MD Allergies, [...] Gm, 2 Refills, Maintenance, 10/12/19 16:00:00 EST, [place], [id number], 1 sprays Nares, Both Daily, 190.5, cm, 10/12/19 15:28:00 EST, Height Start Date: 10/12/19 Status: Ordered Problem List Condition Effective Dates Status Health Status Inform ant ADHD - Attention deficit dis order with hyperactivity(Confirmed) 1989 Active Social History Social History Type Response Smoking Status Former smoker entered on: 08/16/14 Sex Male
--- OUTSIDE RECORDS SUMMARY | 2024-06-19 23:32 | XMS_ITS | Continuity of Care Document ---
Author Organization [facility] Adult Medicine Address [address] [place] [address]- Care Team Providers Care Fire Prevention Engineer Name Role Phone Sammy WHITE, Rut Primary Care Physician [phone] Encounter [facility] [place] Date(s): 11/23/22 - 02/27/23 [facility] Adult [facility] [address] [place], [place] [address] Attending Physician: Rut Christianson MD Admitting Physician: Rut Christianson MD Allergies, Adverse Reactions, Alerts No Known [...] 10/21/23 11:07:00 EST, 10/22/22 11:06:00 EST, Caps[place], [facility], Partial fill upon patient [...] Refills, Maintenance, 10/26/22 12:26:00 EST, ER Capsule, [facility], Partial fill upon [...] Team Personnel Name: Rut Christianson MD Position: [facility] Physician - Primary Care Member Role: PCP Address: Address: [address] [place] [address] Name: Laura Bentley RN Position: [facility] RN Member Role: Primary Care Nurse Name: Terra Mann RN Position: [facility] RN Member Role: Primary Care Nurse Care Team Related Persons Name: FLORY YANGATE Address: [address] [address]
--- OUTSIDE RECORDS SUMMARY | 2024-06-19 23:32 | XMS_ITS | Continuity of Care Document ---
Author Organization [facility] Address [address] [place] [address] ve [address] [place] [address]- Care Team Providers Care High School Academic Coach Name Role Phone Sammy WHITE, Rut Primary Care Physician [phone] Encounter [facility] [place] Date(s): 06/28/20 - 07/05/20 [facility] [address] [place], [place] [address] Attending Physician: Lisa Mcgowan MD Referring Physician: Rut Christianson MD Allergies, [...] deficit dis order with hyperactivity(Confirmed) 1989 Active Vital Signs Most recent to oldest [Reference Range]: 1 Height 190.50 cm (06/28/20 1:59 PM) Weight 76.5 kg (06/28/20 1:59 PM) Pulse Rate [55-90 bpm] 70 bpm (06/28/20 1:59 PM) Body Mass Index [18.5-24.99] 21.08 (06/28/20 1:59 PM) Blood Pressure [90-138/55-84 mm Hg] 114/ 63mm Hg (06/28/20 1:59 PM) Respiratory Rate [16-30 br/min] 16 br/mi n (06/28/20 1:59 PM) Temperature [96.8-100.4 DegF] 99.1 DegF (06/28/20 1:59 PM) Blood pressure sites Arm, left (06/28/20 1:59 PM) Temperature Route Temporal (06/28/20 1:59 PM) Social History Social History Type Response Smoking Status Former smoker entered on: 08/16/14 Sex Male
--- OUTSIDE RECORDS SUMMARY | 2024-06-19 23:32 | XMS_ITS | Continuity of Care Document ---
Author Organization [facility] Address [address] [place] [address]- Care Team Providers Care Gas Meter Repair Supervisor Name Role Phone Sammy WHITE, Rut Primary Care Physician [facility]counter [facility] Date(s): 10/15/23 - 11/14/23 [facility] [address], [place] [address] Allergies, Adverse Reactions, Alerts No Known [...] tablet, 3 Refills, Maintenance, 10/15/23 18:17:00 EST, [facility]/pharmacy #[id number], 190, cm, 11/16/22 9:37:00 EDT, [...] Refills, Maintenance, 10/26/22 12:26:00 EST, ER Capsule, [facility], Partial fill upon patient [...] Team Personnel Name: Rut Christianson MD Position: [facility] Physician - Primary Care Member Role: PCP Address: Address: [address] [place] [id number]- Name: Laura Bentley RN Position: S RN Member Role: Primary Care Nurse Name: Terra Mann RN Position: S RN Member Role: Primary Care Nurse Care Team Related Persons Name: GRADY YANG Address: home [address] [address]
--- OUTSIDE RECORDS SUMMARY | 2024-06-19 23:32 | XMS_ITS | Continuity of Care Document ---
Author Organization [facility] Address [address] [place] [address]- Care Team Providers Care Mathematics Instructor Name Role Phone Sammy WHITE, Rut Primary Care Physician [facility]counter [facility] Date(s): 01/28/23 - 02/27/23 [facility] [address] [place] [id number] Attending Physician: Tatiana Lara Admitting Physician: AdmTatiana [...] 10/21/23 11:07:00 EST, 10/22/22 11:06:00 EST, Capsule, [facility], Partial fill upon [...] Refills, Maintenance, 10/26/22 12:26:00 EST, ER Capsule, [facility], Partial fill upon patient [...] Team Personnel Name: Rut Christianson MD Position: [facility] Physician - Primary Care Member Role: PCP Address: Address: [address] [place] [address] Name: Laura Bentley RN Position: [facility] RN Member Role: Primary Care Nurse Name: Terra Mann RN Position: S RN Member Role: Primary Care Nurse Care Team Related Persons Name: GRADY YNAG Address: [address] [address]
--- NOTE | 2024-06-20 00:09 | ED_ITS ---
HPI - General Adult General Chief complaint: Skin/Abscess/Foreign Body Stated complaint: abscess under armpit Time Seen by Provider: 06/20/24 00:09 History of Present Illness ED Provider: Latha FIGUEROA narrative: The patient is a 39-year-old male who says that he noticed some pimples in his right axilla a week ago. He says he popped 1 of the pimples and some pus came out. Few days later he developed a much larger area of redness and pain in the skin of the axilla. He has never had something like this before. He does not shave his armpits. No fever, sweats, chills. Related Data Home Medications ?Medication ?Instructions ?Recorded ?Confirmed gabapentin 600 mg tablet 600 mg PO TID 03/02/24 03/02/24 Previous Rx's ?Medication ?Instructions ?Recorded cephalexin 500 mg capsule 500 mg PO QID 8 days #32 caps 06/20/24 sulfamethoxazole 800 1 tab PO BID #16 tabs 06/20/24 mg-trimethoprim 160 mg tablet (Bactrim DS) Allergies Allergy/AdvReac Type Severity Reaction Status Date / Time No Known Allergies Allergy Verified 06/19/24 20:52 Review of Systems Review of Systems: Yes all other systems are reviewed and are negative [facility] Past Medical History Medical History (Updated 06/20/24 @ 01:23 by Celso Azul MD) No known health problems Surgical History Hx of shoulder surgery History of hip surgery Family History Family History Father No problems noted. Mother Lung cancer Social History Social History Housing: House Alcohol intake: never Patient Tobacco Use Status: Never used Tobacco e-Cigarette/Vaping Use: Never Used Substance Use Type: Marijuana Advance Directives: No service: Yes Current occupational status: employed Cognitive needs: No Hearing needs: No Vision needs: No Physical Exam ED Vital Signs: Vital Signs - 24 hr 06/19/24 20:47 06/20/24 01:38 Temperature 98.7 F 98.7 F Pulse Rate 79 79 Respiratory Rate 18 18 Blood Pressure 115/72 115/72 Pulse Oximetry 97 97 Oxygen Delivery Method Room Air Room Air BMI result Body Mass Index 26.2 Const Other: The patient looks as though he is an ordinarily healthy and athletic 39-year- old. [facility] Other: Face is unremarkable. Face is symmetrical. Mucous membranes moist. Eyes General: appearance normal, both eyes and all related structures Neck Neck: Yes full ROM Resp Effort & Inspection: normal respiratory effort Skin Other: The patient has erythema and swelling to the skin of the axilla. There is a primary area of swelling that is about 5 cm x 4 cm. He is quite tender and there is some fluctuance. In addition to a primary area of swelling there are a few satellite areas of redness that look like pimples. Medications Administered Discontinued Medications Generic Name Dose Route Start Last Admin Trade Name Freq PRN Reason Stop Dose Admin Bacitracin 1 appl 06/20/24 01:21 06/20/24 01:36 Bacitracin Oint 0.9 Gm Packet TOPICAL 06/20/24 01:22 Not Given ONCE ONE Protocol Cephalexin HCl 1,000 mg 06/20/24 00:58 06/20/24 01:18 Cephalexin 500 Mg Capsule PO 06/20/24 00:59 1,000 mg ONCE ONE Administration Ketorolac Tromethamine 30 mg 06/20/24 01:32 06/20/24 01:35 Ketorolac Tromethamine 30 Mg/Ml Vial IM 06/20/24 01:33 30 mg ONCE ONE Administration Lidocaine HCl 5 ml 06/20/24 00:20 06/20/24 00:55 Lidocaine Hcl 1 % 20 Ml Vial INFILTRATI 06/20/24 00:21 5 ml ONCE ONE Administration Lidocaine/Epinephrine 10 ml 06/20/24 00:48 06/20/24 00:55 Lidocaine Hcl 1%/Epi 1:100,000 10 Ml Vial INFILTRATI 06/20/24 00:49 10 ml ONCE ONE Administration Trimethoprim/Sulfamethoxazole 1 tab 06/20/24 00:59 06/20/24 01:19 Sulfamethox/Trimeth 800/160 Tablet PO 06/20/24 01:00 1 tab ONCE ONE Administration Procedures Abscess I/D Site: upper extremity (Right axilla) Side (if applicable): right Local Anesthetic: lidocaine 1% Amount of anesthesia used (mL): 3 Technique: needle aspiration and incised with blade Sent for culture/gram staining?: No Irrigation: No Packing used?: iodoform Complications: bleeding (There was more bleeding than I expected. I injected some lidocaine with epinephrine around the incision and applied pressure. The bleeding abated.) Medical Decision Making Medical Decision Making MDM Narrative: The patient is a 39-year-old male who presents with what seems to be a right axillary soft tissue skin abscess. The reason for this is not clear. The patient has had no change in his usual axillary hygiene. He does not shave his armpits and he is not using any new products. I used a bedside ultrasound that suggested there might be a small collection of drainable fluid. I prepped the skin of this portion of the axilla with Betadine. I anesthetized the skin with 1% lidocaine using a 30 gauge needle. I then used an 18 gauge needle to aspirate what I thought was the fluctuant area. I aspirated some syrup purulent material. I then made an incision with a #11 blade and opened up what seemed a small abscess cavity. When I used the scalpel I took pains to make sure I did not cut deeply. There was a surprising amount of bleeding associated with the incision. I placed some iodoform gauze within the abscess cavity. I held pressure and injected some lidocaine with epinephrine around the incision. Bleeding ultimately stopped. The patient was observed. There was no recurrence of bleeding. The patient was started on be dtime antibiotics, cephalexin and Bactrim. The patient will be discharged to follow up with his PCP or with the surgery clinic. Discharge Plan Discharge Clinical Impression: Abscess of axilla, right Patient Disposition: Home, Self-Care Instructions: Abscess (ED), Abscess Incision and Drainage (DC) Additional Instructions: You have a skin infection in the skin of your right armpit which had a small abscess which was drained. There is a small amount of packing material in the abscess. This will probably fall out on its own in the next day or 2 but if it does not fall out that is okay. Please take the antibiotics as prescribed. Take the cephalexin 4 times a day (approximately every 6 hours). Take the sulfamethoxazole-trimethoprim (also known as Bactrim) 2 times a day, approximately every 12 hours. You may use ibuprofen and acetaminophen as needed for pain. For follow up you may follow up with your regular doctor's office if they are comfortable seeing you for an abscess. However if your regular doctor's office would prefer you to see the surgery office we have given you their contact information as well. Return to the emergency room if significantly worse. Prescriptions: New sulfamethoxazole-trimethoprim [Bactrim DS] 800-160 mg tablet 1 tab PO BID Qty: 16 0RF cephalexin 500 mg capsule 500 mg PO QID 8 Days Qty: 32 0RF No Action gabapentin 600 mg tablet 600 mg PO TID Referrals: [facility] General Surgeons [Provider Group] (Right axillary abscess) Fortunato Luis, TEST DESIGNER-BC [Primary Care Provider] - (right axillary abscess) Interventions: ED Discharge Assessment Last Done: 06/20/24 01:38 Print Language: Niuean
[2024-06-20] MEDS: Lidocaine HCl 1%/Epi 1:100,000 10 ML VIAL INFILTRATI (00:55)
[2024-06-20] MEDS: Lidocaine HCl 1 % 20 ML VIAL 5 ML INFILTRATI (00:55)
[2024-06-20] MEDS: cephALEXin 500 MG CAPSULE 1000 MG PO (01:18)
[2024-06-20] MEDS: Sulfamethox/Trimeth 800/160 TABLET 1 TAB PO (01:19)
[2024-06-20] MEDS: Ketorolac Tromethamine 30 MG/ML VIAL IM (01:35)
[2024-06-20 01:38] VITALS: BP 115/72; PULSE 79; RESP 18; TEMP 37.1; O2SAT 97
== END 2024-06-20 01:48 | disposition home or self-care (01) ==
PROVIDERS: Emergency Provider Emergency Medicine; PCP Nurse Practitioner Family
DX: L02.411 Cutaneous abscess of right axilla (principal)
CPT/HCPCS: 10060; 96372; 99283; 99284; J1885; J2003; J2004

== ENCOUNTER 2024-10-08 11:01 | Outpatient (AMB) | payer OTHER, SELFPAY ==
--- NOTE | 2024-10-08 11:32 | MHC.OFFWIV ---
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 Patient Tobacco Use Status: Never used Tobacco Allergies No Known Allergies Allergy (Verified 10/08/24 11:35) Do you need a note to return to daycare/school/sports/work: Yes HPI HPI Comments History of Present Illness Details 39 y/o male patient who presents to the walk in clinic with c/o left knee pain due to an injury. Pt reports that 2 weeks ago he fell off Forklift and landed on his left knee. [facility] Medical History (Updated 10/08/24 @ 11:47 by Inés Tapia NP) Contusion of knee No known health problems Surgical History Hx of shoulder surgery History of hip surgery Family History Father No problems noted. Mother Lung cancer Social History Housing: House Alcohol intake: never Patient Tobacco Use Status: Never used Tobacco e-Cigarette/Vaping Use: Never Used Substance Use Type: Marijuana service: Yes Current occupational status: employed Cognitive needs: No Hearing needs: No Vision needs: No Review of Systems Const All systems reviewed & are unremarkable except as noted in HPI and below Physical Exam Vital Signs: Last Vital Signs Pulse 59 10/08/24 11:34 BP 112/70 10/08/24 11:34 Pulse Ox 97 10/08/24 11:34 Oxygen Delivery Method Room Air 10/08/24 11:34 Const General: cooperative and no acute distress Nutritional Appearance: thin Orientation/consciousness: patient oriented x3 Neuro General: patient oriented x3, gait normal and moves all extremities Extrem Right lower extremity: normal to inspection and full ROM Left lower extremity: knee Details: normal to inspection, tenderness Location: of the patella and of the popliteal fossa and normal ROM; no swelling, no lacerations, no ecchymosis, no crepitus and no deformity Psych Speech and movement: Normal speech and movement present Assessment & Plan Assessment & Plan (1) Contusion of knee: Code(s): S80.00XA - Contusion of unspecified knee, initial encounter Qualifiers: Encounter type: initial encounter Laterality: left Qualified Code(s): S80.02XA - Contusion of left knee, initial encounter Plan: Ice/Hot NSAIDs and Acetaminophen for pain relief Ordered PT Orders: Orders PT Evaluation and Treatment Today S80.02XA - Contusion of left knee, initial encounter Medications: New acetaminophen 1,000 mg (2 x 500 mg) PO Q6H PRN 30 caps 0RF pain S80.02XA - Contusion of left knee, initial encounter cyclobenzaprine 5 mg PO BEDTIME 10 tabs 0RF S80.02XA - Contusion of left knee, initial encounter Coding Level of Care Code Est Pt Level 4 (92126) Diagnoses Contusion of left knee, initial encounter S80.02XA Encounter type: initial encounter Laterality: left Time Spent (min) 20
[2024-10-08 11:34] VITALS: BP 112/70; PULSE 59; O2SAT 97
--- OUTSIDE RECORDS SUMMARY | 2024-10-08 11:43 | XMS_ITS ---
Author Organization [facility] Address [address] [place] [address] Care Team Providers Care Record Press Tender Name Role Phone Elder Rodriguez Primary Care Provider Philly Garrett [phone] REASON FOR VISIT Appt. Cx Encounters Encounter Location Date Provider Diagnosis [facility] [address] [place] [address] 07/02/2024 Philly Cotton Plan Of Treatment No Information Progress Notes * Mariangel CERRATOOB:1985 (39 yo M)Acc No.[id number]:07/02/2024 Patient:?Cesar Cerrato :1985???Age:39 Y???Sex:Male Address:[address] [place] [address], [address] * true * Date:? Generated for Printi henok/Selvin/eTransmitting on:?10/08/2024 11:42 AM EST
--- OUTSIDE RECORDS SUMMARY | 2024-10-08 11:43 | XMS_ITS ---
Author Organization [facility] Address [address] [place] [address] Care Team Providers Care Analytics Lead Name Role Phone Elder Rodriguez Primary Care Provider Philly Garrett [phone] Medications Medication SIG (Take, Route, Fr equency, Duration) Notes Start Date End Date Status Gabapentin 600 MG Oral for 30 Days Active Social History Tobacco Use: Social History Observation Description Date Details (start date - stop date) Former Smoker NA - NA Tobacco Use/Smoking Question Answer Notes Are you a: former smoker Additional Findings: Tobacco Non-User Current no n-smoker Alcohol Screen Question Answer Notes Did you have a drink containing alcohol in the p ast year? Yes Points 0 Interpretation Negative Tobacco use other than smoking: Question Answer Notes Are you an other tobacco user? No Vital Signs Height 6 ft 3 in in 07/07/2024 Weight 215 lbs lbs 07/07/2024 BMI 26.87 kg/m2 07/07/2024 Encounters Encounter Location Date Provider Diagnosis [facility] [address] [place] [address] 07/07/2024 Philly Cotton Plan Of Treatment No Information Progress Notes * Stevie CERRATOSamOB:1985 (39 yo M)Acc No.[id number]:07/07/2024 Progress Notes Patient:?Cesar CERRATO Provider:?Philly Cotton DPM :1985???Age:39 Y???Sex:Male Ben e:07/07/2024 Address:[address] [place] [address], [id number] Pcp:Elder Rodriguez Subjective: * Chief Complaints: * ??? * ROS:?General/Constitutional:?Nausea?denies.?Vomiting?denies.?Hunger Thirst?denies.?Loss appetite?denies.?Chills?denies.?Fatigue?denies.?Fever?denies.?Night Sweats?denies.?Unexplained weight loss?admits.?Unexplained weight gain?denies.?HEENTM:?Dentures?denies.?Dizziness?denies.?Glasses/contacts?denies.?Retinopathy?de nies.?Blurred/double vision?denies.?TMJ?denies.?Discharge/drainage?denies.?Implants?denies.?Sore throat?denies.?Dental implants?denies.?Hard of hearing ?denies.?Difficulty chewing/swallowing/speaking?denies.?Nose bleeds?denies.?Sore mouth?denies.?Respiratory:?On Oxygen?denies.?Pneumonia/pleurisy?denies.?Bronchitis?denies.?Emphysema?denies.?C oughing?denies.?Cough blood?denies.?Shortness of breath?denies.?Wheezing?denies.?Cardiovascular:?Pacemaker?denies.?MVP?denies.?WPW?denies.?CHF?denies.?Heart attack?denies.?Septal defect?denies.?Rapid beat?denies.?Chest pain ?denies.?Atrial Fib.?denies.?Murmur/Palpitations?denies.?Gastrointestinal:?Hemorrhoids?denies.?Stomach/Abdominal pain?denies.?Dark blood stool?denies.?Irritable bowel ?denies.?Constipation?denies.?Diarrhea?denies.?Hematology:?Swelling?denies.?Clots?denies.?Varicose Veins?denies.?Bruising?denies.?Bleeding problem?denies.?Genitourinary:?Blood urine?denies.?Frequent/Painfu/urination/bladder control?denies.?Kidney stones?denies.?Infection (UTI)?denies.?Nephropathy?denies.?sex trans dis (STD)?denies.?Prostate?denies.?Musculoskeletal:?Hammertoes?denies.?Bunions?denies.?Back Pain?denies.?Muscle Cramps/ Resting?denies.?Muscle cramps / walking?denies.?Generalized aches and pains?denies.?Weakness?denies.?Integ.:?Alicea?admits.?Scars?denies.?Corns/calluses?denies.?Ingrown nails?denies.?Painful nails?denies.?Open Sores?denies.?Rashes?denies.?Neurologic:?Difficulty sleeping?denies.?Brain disorder?denies.?Numbness?admits.?Balance trouble?denies.?Confusion?denies.?Fainting/blackouts?denies.?Tingling?admits.?Tr emors?denies.? * Medical History:?Chicken pox , Joint implants/screws. * Surgical History:?shoulder s urgery Labrum tear , Hip 10/19/2023. * Social History:?Tobacco Use:?Tobacco Use/Smoking?Are you a:?former smoker ?Additional Findings: Tobacco Non-User?Current non-smoker ?Tobacco use other than smoking?Are you an other tobacco user??No ???Drugs/Alcohol:?Drugs?Have you used drugs other than those for medical reasons in the past 12 months??No ?Alcohol Screen?Did you have a drink containing alcohol in the past year??Yes ?Points?0 ?Interpretation?Negative ???Miscellaneous:?Caffeine: yes, frequency:. ?Marital status: single. * Medications:?Taking Gabapent in 600 MG Tablet Oral Objective: * Vitals:?Ht: 6 ft 3 in, Wt:21 5 lbs, BMI:26.87, Shoe size: 11, Ht-cm: 190.5 cm, Wt-k.52 kg. Assessment: Plan: * Treatment: * Images: * The named appointment provid er may or may not be the originator of this progress note, and it is not deemed complete until electronically signed by the appointment provider. Sign off status: Pending * Provider:?Philly Cotton DPM Date:?07/2024 Generated for Fito whiting/Selvin/Stephitting on:?10/08/2024 11:43 AM EST
--- OUTSIDE RECORDS SUMMARY | 2024-10-08 11:43 | XMS_ITS | Patient Health Record ---
Author Organization [facility] Address [address] [place] [address] Care Team Providers Care Machine Builder Name Role Phone Elder Rodriguez Primary Care Provider Philly Garrett Unavailable [phone] Reason For Referral No Information Medications Medication SIG (Take, Route, Fr equency, [...] Are you an other tobacco user? No Encounters Encounter Location Date Provider Diagnosis [address] [address] 07/02/2024 Philly Cotton [address] [address] 07/02/2024 Philly Cotton Plan Of Treatment No Information Insurance Providers Payer Name Payer Address Payer Phone Subscriber Number Group Number Insured Name Patient Relationship to Insured Coverage Start Date Coverage End Date [employer] [address] [place] [phone] [id number] Cesar Hunt Self - patient is the insured Medical (General) History Medical History History ICD Code Chicken pox Joint implants/screws Surgical History Surgery Date(Month/Year) shoulder surgery Labrum tear Hip 10/19/2023
--- OUTSIDE RECORDS SUMMARY | 2024-10-08 11:43 | XMS_ITS ---
Author Organization [facility] Address [address] [place] [address] Care Team Providers Care Supervisory Cbp Officer Name Role Phone Elder Rodriguez Primary Care Provider Philly Garrett [phone] REASON FOR VISIT 07/07/24 ELECTRICAL ENGINEERING DESIGNER appt Encounters Encounter Location Date Provider Diagnosis [facility] [address] [place] [address] 07/02/2024 Philly Cotton Plan Of Treatment No Information Progress Notes * Mariangel CERRATOOB:1985 (39 yo M)Acc No.[id number]:07/02/2024 Patient:?Cesar Cerrato :1985???Age:39 Y???Sex:Male Address:[address] [place] [address], [address] * true * Date:? Generated for Printi henok/Selvin/eTransmitting on:?10/08/2024 11:42 AM EST
== END 2024-10-08 12:47 | disposition home or self-care (01) ==
PROVIDERS: Visit Provider Nurse Practitioner Family
DX: S80.02XA Contusion of left knee, initial encounter (principal)